=== PATIENT | female | born 1945 | race Caucasian/White ===

== ENCOUNTER 2017-03-21 16:11 | Observation (INO) | payer MEDICARE, OTHER ==
--- NOTE | 2017-03-21 16:43 | ERPHSYRPT ---
- History of Present Illness Time Seen by Provider: 03/21/17 16:35 Source: patient Exam Limitations: no limitations Patient Subjective Stated Complaint: pt here for right foot pain and not being able to bear wieght on foot. no injury to foot, was seen at [facility] yesterday for same thing and had xray and us. Triage Nursing Assessment: pt arrived per ambulance. pt alert, resp easy, skin w /d pink, pt has minimal swelling to lower right leg . slight reddness to lower leg, Physician History: 71-year-old white female with history of adrenal insufficiency, high blood pressure, osteoarthritis and chronic kidney disease. Arrives with complaint of pain in her dorsal right foot worse with movement and states she is unable to walk secondary pain in her right foot. Symptoms for 2-3 days. Patient was apparently seen at [facility] yesterday she states they didn' t x-ray and a Doppler. She states that she had gotten a pain pill she states she was discharged home she states she cannot walk. Past medical history includes adrenal insufficiency, high blood pressure, osteoarthritis, chronic kidney disease, shortness of breath. Past surgical history includes cholecystectomy, orthopedic surgery, right knee replacement. Method of Injury: unknown Occurred: days ago (2-3 days ago) Lower Extremities Pain: foot: right Modifying Factors: Improves With: movement, other (unable to bear weight right foot) Associated Symptoms: unable to bear weight Allergies/Adverse Reactions: guaifenesin [From Mucinex] Allergy (Mild, Verified 03/21/17 16:19) unsure levofloxacin [From Levaquin] Allergy (Mild, Verified 03/21/17 16:19) unsure nabumetone [From Relafen] Allergy (Mild, Verified 03/21/17 16:19) UNSURE Home Medications: Aspirin 81 gm Chew [Baby Aspirin 81 mg Chew] 81 mg PO DAILY 08/01/13 [ History] Cephalexin [Keflex] 500 mg PO QID 12/27/13 [History] Folic Acid/Vitamin B Comp W-C [Renal Softgel] 1 mg PO DAILY 12/27/13 [History] Furosemide 40 mg PO DAILY 12/27/13 [History] Losartan Potassium [Cozaar] 25 mg PO DAILY 12/27/13 [History] Metolazone 2.5 mg [Zaroxolyn 2.5 MG] 2.5 mg PO DAILY 12/27/13 [History] Metoprolol Succinate 50 mg [Toprol Xl 50 MG] 50 mg PO DAILY 12/27/13 [ History] Potassium Chloride 20 Meq [Klor-Con 20 MEQ] 20 meq PO BID 12/27/13 [History] Hx Tetanus, Diphtheria Vaccination/Date Given: Yes (UNKNOWN) Hx Influenza Vaccination/Date Given: No Hx Pneumococcal Vaccination/Date Given: No Immunizations Up to Date: Yes - Review of Systems Constitutional: No Fever, No Chills Eyes: No Symptoms Ears, Nose, & Throat: No Symptoms Respiratory: No Cough, No Dyspnea Cardiac: No Chest Pain, No Edema, No Syncope Abdominal/Gastrointestinal: No Abdominal Pain, No Nausea, No Vomiting, No Diarrhea Genitourinary Symptoms: No Dysuria Musculoskeletal: Arthralgias, Other (pain with walking right foot) Skin: No Rash Neurological: No Dizziness, No Focal Weakness, No Sensory Changes Psychological: No Symptoms Endocrine: No Symptoms All Other Systems: Reviewed and Negative - Past Medical History Pertinent Past Medical History: Yes Neurological History: No Pertinent History Cardiac History: Hypertension Respiratory History: Other Endocrine Medical History: Adrenal Insufficiency Musculoskeletal History: Osteoarthritis GI Medical History: No Pertinent History History: Other Psycho-Social History: No Pertinent History Female Reproductive Disorders: No Pertinent History Other Medical History: chronic kidney disease, SOB, - Past Surgical History Past Surgical History: Yes Gastrointestinal: Cholecystectomy Musculoskeletal: Orthopedic Surgery - Social History Smoking Status: Never smoker Exposure to second hand smoke: No Drug Use: none Patient Lives Alone: No - Female History Hx Last Menstrual Period: post Hx Now: No - Nursing Vital Signs Nursing Vital Signs: Initial Vital Signs Temperature 97.4 F 03/21/17 16:12 Pulse Rate 102 H 03/21/17 16:12 Respiratory Rate 18 03/21/17 16:12 Blood Pressure 129/60 03/21/17 16:12 O2 Sat by Pulse Oximetry 97 03/21/17 16:12 Pain Scale Pain Intensity 4 - Physical Exam General Appearance: alert Eyes, Ears, Nose, Throat Exam: moist mucous membranes Neck Exam: non-tender, supple Cardiovascular/Respiratory Exam: chest non-tender, normal breath sounds, regular rate/rhythm, no respiratory distress Gastrointestinal/Abdominal Exam: non-tender, guarding Back Exam: normal inspection, No vertebral tenderness Hips Exam: bilateral: non-tender, normal inspection, normal range of motion, no evidence of injury Legs Exam: left leg: non-tender, normal inspection, bilateral leg: normal range of motion, no evidence of injury Knees Exam: bilateral knee: non-tender, normal inspection, normal range of motion, no evidence of injury Ankle Exam: bilateral ankle: non-tender, normal inspection, normal range of motion Foot Exam: right foot: bone tenderness, left foot: non-tender, bilateral foot: normal inspection, no evidence of injury, deformity ( tender with palpation dorsally) DTR - Lower Extremities Exam: ankle (R): 2+, ankle (L): 2+ Neuro/Tendon Exam: normal sensation, normal motor functions Mental Status Exam: alert, oriented x 3, cooperative Skin Exam: normal color, warm, dry SpO2 Interpretation: normal (97%) SpO2: 97 Oxygen Delivery: Room Air - Course Nursing assessment & vital signs reviewed: Yes Ordered Tests: Active Orders 24 hr Category Date Time Status BMP Stat Lab 03/21/17 17:20 Completed CBC W DIFF Stat Lab 03/21/17 17:20 Completed Uric Acid Stat Lab 03/21/17 17:20 Completed Lab/Rad Data: Laboratory Result Diagrams 03/21/17 17:20 03/21/17 17:20 Laboratory Results 03/21/17 03/21/17 03/21/17 Range/Units 17:20 17:20 17:20 WBC 8.9 (4.0-10.5) K/mm3 RBC 4.37 (4.1-5.4) M/mm3 Hgb 11.7 L (12.0-16.0) gm/dl Hct 37.0 (35-47) % MCV 84.7 (78-100) fl MCH 26.7 (26-32) pg MCHC 31.6 L (32-36) g/dl RDW 15.1 H (11.5-14.0) % Plt Count 234 (150-450) K/mm3 MPV 10.4 H (6-9.5) fl Gran % 78.8 H (36.0-66.0) % Lymphocytes % 14.1 L (24.0-44.0) % Monocytes % 4.1 (0.0-12.0) % Eosinophils % 2.7 (0.00-5.0) % Basophils % 0.3 (0.0-0.4) % Basophils # 0.03 (0-0.4) Sodium 142 (136-145) mEq/L Potassium 3.5 (3.5-5.1) mEq/L Chloride 102 (98-107) mEq/L Carbon Dioxide 28.9 (21-32) mEq/L Anion Gap 14.9 (5-15) MEQ/L BUN 37 H (9-20) mg/dL Creatinine 1.81 H (0.55-1.30) mg/dl Estimated GFR 29 ML/MIN Glucose 150 H (70-110) MG/DL Uric Acid 12.0 H (2.6-6.0) mg/dL Calcium 9.1 (8.5-10.1) mg/dL - Progress Progress: improved Progress Note: 03/21/17 17:55 71-year-old white female with history of right knee replacement arrives with complaint of pain in her right foot and unable to walk for several days. Patient was seen at [facility] yesterday at which time she had a normal CBC sedimentation rate, venous Doppler of her right lower extremity an x-ray of her right foot. Patient was apparently given a shot of Toradol Will release given a prescription for tramadol. Patient states she is unable to walk and is brought to this emergency room today. On physical examination patient appears to be stable she has pain with palpation dorsal right foot and pain with trying to walk family states that the patient is unable to his airway on her feet they state she is unable to get around at home. Patient has a repeat CBC which is essentially normal chemistry essentially normal. However patient does have an elevated sedimentation rate of 12. Will discuss case with Dr. Nicole or whoever is on-call for her. 03/21/17 18:16 case has been discussed with Dr. Rodriguez place patient on observation provide morphine for pain. Will ask for pharmacy to calculate dosage and frequency of Colchicine. - Departure Time of Disposition: 18:17 Departure Disposition: Observation Clinical Impression: Right foot pain, Inability to ambulate due to ankle or foot Gout Qualifiers: Gout site: foot Gout etiology: unspecified cause Chronicity: acute Laterality: right Qualified Code(s): M10.9 - Gout, unspecified Condition: Fair Critical Care Time: No Referrals: JATIN NICOLE [Primary Care Provider] -
[2017-03-21 17:14] LABS: BASOPHIL % 0.3 % (0.0-0.4); Eosinophil % 2.7 % (0.00-5.0); Granulocytes % 78.8 % (36.0-66.0); Lymphocytes % 14.1 % (24.0-44.0); Mean Cell Volume 84.7 fl (78-100); Mean Platelet Volume 10.4 fl (6-9.5); Monocytes % 4.1 % (0.0-12.0); Platelet Count 234 K/mm3 (150-450); Red Blood Count 4.37 M/mm3 (4.1-5.4); Red Cell Distribution Width 15.1 % (11.5-14.0); White Blood Count 8.9 K/mm3 (4.0-10.5)
[2017-03-21 17:42] LABS: ANION GAP 14.9 MEQ/L (5-15); Carbon Dioxide 28.9 mEq/L (21-32); Potassium 3.5 mEq/L (3.5-5.1)
[2017-03-21 17:43] LABS: Mean Corpuscular Hemoglobin 26.7 pg (26-32)
[2017-03-21] MEDS ORDERED: Zofran 4 MG/2 ML VIAL IV PRN (19:19)
[2017-03-21] MEDS: MORPHINE SULFATE 4 MG INJ IV PRN (20:26)
[2017-03-21] MEDS: DELTASONE 20 MG PO SCH (22:14)
[2017-03-21] MEDS: Indocin 25 MG PO SCH (22:15)
[2017-03-22] MEDS: MORPHINE SULFATE 4 MG INJ IV PRN (05:01)
--- NOTE | 2017-03-22 08:46 | XRAY ---
Indication: Pain, erythema, and swelling. Unable to weight-bear. No known injury. Multiple contiguous axial images obtained through the right ankle/foot without contrast. Two-dimensional sagittal and coronal reformatted images obtained. Comparison: None There is mild cutaneous soft tissue swelling, greatest anterolaterally. No suspicious solid/cystic mass or abnormal fluid collection. Moderate/advanced scattered vascular calcifications. Ankle/foot mortise appears anatomic. Note tarsal coalition. The mid to hind foot demonstrates moderate degenerative changes as evidence by joint space narrowing, sclerosis/spurring, and subcortical cysts. Lesser degenerative changes seen of the talar navicular articulation. Tiny medial malleolar tip spurring. Mild/moderate posterior and plantar heel spurs. No acute fracture or suspicious bony lesions. Impression: Diffuse ankle/foot degenerative changes and scattered arteriosclerotic disease. Nothing acute. CT DI 31.59
[2017-03-22] MEDS ORDERED: FLUZONE HIGH-DOSE 2017-18 SYR IM ONE (09:00)
[2017-03-22] MEDS: DELTASONE 20 MG PO SCH (09:19)
[2017-03-22] MEDS: Indocin 25 MG PO SCH ×3 (09:19→21:50)
--- NOTE | 2017-03-22 15:04 | XRAY ---
Indication: residential placement. Comparison: None Portable chest clear. Heart and mediastinal structures within normal limits for AP portable technique. Bony thorax intact with mild degenerative changes. Impression: Nonacute chest.
--- NOTE | 2017-03-22 15:06 | XRAY ---
Indication: Pain. Comparison: CT earlier in the day. 3 views of the right ankle obtained using portable technique demonstrates stable ankle/hindfoot degenerative changes, soft tissue swelling, and scattered vascular calcifications. No new/acute findings.
[2017-03-22] MEDS: Klor Con 10 MEQ PO SCH ×2 (15:59→21:50)
[2017-03-22] MEDS: NON-FORMULARY ITEM (Sodium Bicarbonate [Sodium Bicarbonate] 0 MG) PO SCH (15:59)
[2017-03-22] MEDS: Vitamin B-12 500 MCG PO SCH (16:00)
[2017-03-22] MEDS: VITA-BEE WITH C PO SCH (16:00)
[2017-03-22] MEDS: BUMEX 1 MG PO SCH (16:00)
[2017-03-22] MEDS ORDERED: NON-FORMULARY ITEM (Potassium Chloride 20 Meq [Klor-Con 20 Meq] 20 MEQ) PO SCH (17:00)
--- NOTE | 2017-03-23 07:56 | HP ---
HISTORY OF PRESENT ILLNESS: Jayna Zaman is a 71 year old with past medical history of hypertension, congestive heart failure, chronic obstructive pulmonary disease, osteoarthritis, chronic renal insufficiency, chronic anemia and obesity. She was seen for symptoms of right knee, right foot pain and swelling. She was seen at [facility] Room on 03/20/2017 with symptoms of right knee, right foot pain and swelling. She underwent work up and was discharged home. Eventually she presented to the [facility] Emergency Room yesterday with persistent right foot pain and not being able to bear weight on the foot. There was no reported history of trauma or unusual activity prior to worsening of symptoms. The symptoms are not associated with fever or redness. The patient stated her usual pain medication, Tylenol, did not help her at all. The symptoms had started about two to three days prior to her presentation. Upon initial evaluation in the emergency room she was noted to have blood pressure 129/60, heart rate 102, respiratory rate 18 and temperature 97.4F. Work up was notable for BUN 37, creatinine 1.81, uric acid 12. She was placed on treatment with analgesics. Subsequently she was admitted to the medical floor for further monitoring and management. Since admission she was continued on analgesics. Since admission she was continued on analgesics. She underwent additional work up. At the time of evaluation this afternoon the patient was alert, awake, comfortable, stated her right foot pain was somewhat better. She did have some mild right ankle pain. She stated knee pain was back to her usual. She stated that she was able to ambulate to bathroom with help. She denied any other new complaints. PAST MEDICAL HISTORY: As noted above. Renal insufficiency. PAST SURGICAL HISTORY: Cholecystectomy, right knee surgery (replacement). ALLERGIES: GUAIFENESIN, LEVOFLOXACIN, NABUMETONE. MEDICATIONS: Reviewed. FAMILY HISTORY: Noncontributory. SOCIAL HISTORY: The patient lives at home. No history of smoking. REVIEW OF SYSTEMS: Denies headache or dizziness. Denies chest pain, increased shortness of breath or cough. Denies history of fever. Denies abdominal pain, nausea or vomiting. Denies constipation or diarrhea. Complains of right knee pain (chronic). Complains of right ankle/right foot pain. Complains of difficulty bearing weight on right foot due to pain (now improved). PHYSICAL EXAMINATION: An elderly, obese woman lying comfortably in bed, not in acute distress. VITAL SIGNS: Blood pressure 155/70, heart rate 64, respiratory rate 20, temperature 97.8F. Oxygen saturation 96 to 97% on room air. HEENT: Pallor is present. NECK: No JVD is present. CVS: S1, S2 present. RESPIRATORY: Breath sounds are bilaterally diminished and clear to auscultation. ABDOMEN: Obese, soft, nontender. NEURO: She is alert, oriented x3. EXTREMITIES: Revealed trace edema on ankles. Examination of right ankle revealed mild tenderness to touch, no erythema, no local increased temperature, range of motion was mildly painful. Examination of right foot revealed minimal swelling, no swelling, no erythema, no local increased temperature. Tenderness is present on dorsal aspect of right foot. Full range of motion of all toes was present. Pedal pulses were present. No discoloration of toes was noted (as per patient all findings had improved from yesterday). Bilateral calves were nontender. Aldo's sign was negative bilaterally. LABORATORY DATA AND TESTS: Labs from yesterday were notable for CBC with white blood cell of 8.9, hemoglobin 11.7, hematocrit 37. CMP was notable for BUN 37, creatinine 1.81, uric acid was 12, glucose 150. The patient underwent right foot x-ray at [facility] on 01/21/2017 and those had revealed no acute changes. Right lower extremity CT from this morning showed diffuse ankle/foot degenerative changes, scattered arteriosclerotic disease, nothing acute. Right ankle x-ray showed no new or acute findings. Chest x-ray from this afternoon had shown nonacute chest. ASSESSMENT: A 71 year old woman with impression: 1) Intractable right foot pain (now improved). 2) Gout. 3) History of hypertension/congestive heart failure. 4) History of chronic obstructive pulmonary disease. 5) Chronic renal insufficiency. 6) Chronic anemia. 7) Chronic obstructive pulmonary disease. 8) Obesity. 9) Difficulty ambulating. PLAN: The patient is admitted for further monitoring and management. The patient has undergone work up and management as noted. Specific medications suggest colchicine, Colcrys or Uloric are not available as per pharmacy. A substitution with indomethacin/daily prednisone was recommended by pharmacy which was started. The patient appears to have symptomatically improved. Orthopedic consultation has been requested. The patient will continue to undergo PT. The patient/family had requested likely penitentiary placement due to difficulty ambulating and overall not being able to take care of herself at home. This was discussed with case management and is being arranged by them. I discussed with the patient and she seems to be in understanding and agreement.
[2017-03-23] MEDS ORDERED: VITAMIN B COMP W C PO SCH (10:00)
[2017-03-23] MEDS ORDERED: Aldactone 25 MG PO SCH (10:00)
[2017-03-23] MEDS ORDERED: FOLIC ACID PO SCH (10:00)
[2017-03-23] MEDS ORDERED: Kenalog-40 IM SCH (10:38)
[2017-03-23] MEDS: Klor Con 10 MEQ PO SCH ×4 (11:03→21:22)
[2017-03-23] MEDS: BUMEX 1 MG PO SCH ×2 (11:03→17:42)
[2017-03-23] MEDS: VITA-BEE WITH C PO SCH (11:03)
[2017-03-23] MEDS: DELTASONE 20 MG PO SCH (11:03)
[2017-03-23] MEDS: Indocin 25 MG PO SCH ×3 (11:04→21:22)
[2017-03-23] MEDS: Vitamin B-12 500 MCG PO SCH (11:04)
[2017-03-23] MEDS: NON-FORMULARY ITEM (Sodium Bicarbonate [Sodium Bicarbonate] 0 MG) PO SCH (11:05)
--- NOTE | 2017-03-23 11:19 | XRAY ---
Indication: Pain. No known injury. Comparison: December 06, 2012. Portable AP/lateral right knee demonstrate interval total knee arthroplasty with intact articulation and prosthesis. Tiny calcified granulomas anterior to the distal femur. Stable osteopenia and scattered vascular calcifications. No other bony, articular, or soft tissue abnormalities.
--- NOTE | 2017-03-23 11:22 | XRAY ---
Indication: Pain. No known injury. Comparison: August 06, 2011. Portable AP/lateral left knee demonstrates moderate/advanced tricompartmental degenerative changes with interval worsening medial compartment. Stable mild osteopenia and minimal vascular calcifications. No new/acute bony, articular, or soft tissue abnormalities.
[2017-03-23] MEDS ORDERED: Xylocaine 1% Vial 30 ML PF IJ SCH (11:30)
--- NOTE | 2017-03-23 15:19 | DS ---
DISCHARGE DIAGNOSES: 1) INTRACTABLE RIGHT FOOT PAIN, RESOLVING. 2) GOUT. 3) RIGHT ANKLE PAIN, IMPROVED. 4) RIGHT KNEE PAIN, IMPROVED. 5) HISTORY OF HYPERTENSION/CONGESTIVE HEART FAILURE. 6) HISTORY OF CHRONIC OBSTRUCTIVE PULMONARY DISEASE. 7) HYPERLIPIDEMIA. 8) ANXIETY. 9) OBESITY. 10) CHRONIC BACK PAIN. 11) CHRONIC RENAL INSUFFICIENCY. HOSPITAL COURSE: Jayna Zaman is a 71 year-old woman with multiple medical problems. She was initially seen at [facility] on 03/20/2017 with right knee, right ankle, right foot pain and after undergoing work up there was discharged home. Eventually she presented to the [facility] Emergency Room on 03/21/2017 with intractable right foot pain, unable to bear weight on right lower extremity and difficulty ambulating. Work up in the emergency room was notable for elevated uric acid of 12. The patient was placed on prednisone, indomethacin as no other anti-hyperuricemic agents were available at the time. Also she was placed on PRN analgesics. During her further course she underwent right ankle x-ray which had revealed no acute changes of the right ankle/right foot. CT had revealed no acute changes. Orthopedic consultation had been requested and is still pending. The patient's pain gradually improved. She was evaluated by PT and was able to ambulate a short distance with assistance. However she continued to remain deconditioned and as per patient and family she is unable to take care of herself at home. The patient and family requested that the patient be placed at the prior facility where she was at a few months ago. This was discussed with case management and after orthopedic evaluation is completed, if cleared by orthopedics the patient will likely be discharged there today. PHYSICAL EXAMINATION: At the time of this evaluation the patient is alert, awake, comfortable, still having some right knee pain (chronic) with prior history of surgery. Right ankle/right foot pain has improved. Otherwise denies any new complaints. VITAL SIGNS: Blood pressure 141/63, heart rate 62, respiratory rate 18, temperature 97.2F. Oxygen saturation 95%. HEENT: No pallor or icterus is noted. NECK: No JVD is present. CVS: S1, S2 present. RESPIRATORY: Breath sounds are bilaterally diminished and clear to auscultation. ABDOMEN: Obese, soft, nontender. NEURO: She is alert, awake, answers simple questions appropriately, follows simple commands appropriately. EXTREMITIES: No edema on bilateral lower extremities. Mild tenderness is present on right knee. Range of motion of right knee painful with well healed scar of prior surgery is noted on anterior aspect of right knee. Right ankle and right foot show minimal tenderness however no erythema, no swelling. Range of movement of right ankle is minimally painful. Full range of motion of right toes is present. No discoloration of toes is noted. LABORATORY DATA AND TESTS: There were no new labs. Medications were reviewed. ASSESSMENT: As outlined in discharge diagnoses and hospital course. PLAN: The patient will be admitted to [facility] under my care. At the time of discharge she is being placed on Medrol Dosepak and a low dose of indomethacin. She has clinically improved and in review of renal function, we will continue to monitor her renal function upon discharge. Also if symptoms recur or worsen, will add specific anti-hyperuricemic agent. The patient will continue to follow with orthopedics as outpatient. Please refer to the patient's chart, labs, diagnostic work up results and consult notes for details. Please refer to discharge medication list from 03/23/2017 for details of medications on discharge. The patient's clinical condition, work-up results and plan of management and plan after discharge was discussed with the patient. She seems to be in understanding and agreement. Discussed with patient's nurse, Jose.
[2017-03-23] MEDS: MORPHINE SULFATE 4 MG INJ IV PRN (19:51)
--- NOTE | 2017-03-24 07:38 | CONS ---
CONSULT DATE: 03/23/2017 REASON FOR CONSULT: Right ankle discomfort, pain and swelling. HISTORY: The patient is a 71 year-old white female with right knee pain, right foot and ankle discomfort. X-rays and CT's have been reviewed and are consistent with generalized degenerative changes. AP film shows a slight transitory subluxation of the tibia on the talus and this is more degenerative in changes with some marginal osteophytes and spurring. PHYSICAL EXAMINATION: Neurovascular status on the exam today is unremarkable. The patient has generalized amorphous swelling with some puffiness around the fibula. Pulses at dorsalis pedis are weakly palpable but are present. The rest of the tendinous inscription over the ankle is intact. The ankle is not grossly unstable to inversion, tender over the anterior talofibular ligament area. Well healed scar on the right knee is seen. Left knee not examined. X-rays on the right ankle show mild subluxation and lateral translation of the talus under the tibia, degenerative joint disease. X-rays of the knee on the right look fine, medial joint line on the left grossly collapsed. IMPRESSION: 1) RIGHT ANKLE DEGENERATIVE CHANGES, UNLIKELY TO BE GOUT. 2) STABLE RIGHT KNEE TOTAL KNEE ARTHROPLASTY. 3) LEFT KNEE DEGENERATIVE JOINT DISEASE END STAGE JOINT LINE COLLAPSE. PLAN: Follow up in four weeks. Injection and attempted aspiration today under aseptic conditions of the right ankle done under aseptic conditions. The aspiration was unsuccessful even with an 18 gauge needle, very little fluid in the joint line to aspirate but injection of 2 cc of lidocaine 1% without epinephrine and 2 cc of Kenalog was performed and the patient tolerated it well.
[2017-03-24 07:43] VITALS: BP 141/66; PULSE 72; O2SAT 72
--- NOTE | 2017-03-24 07:44 | OP ---
DATE: 03/23/2017 PREOPERATIVE DIAGNOSES: 1) Degenerative joint disease right ankle. 2) Possible gouty attack right ankle need for aspiration. POSTOPERATIVE DIAGNOSIS: 1) Degenerative joint disease right ankle. 2) Possible gouty attack right ankle need for aspiration. PROCEDURE: Right ankle aspiration and injection. PROCEDURE PERFORMY BY: Dr. Nir Blanco. DESCRIPTION OF PROCEDURE: Under aseptic conditions and after appropriate consent using local anesthesia with Betadine prep, an 18 gauge needle was used to aspirate the fluid in the ankle and none obtained. None was sent down for cell count or uric acid levels or cultures. Injection of 1 cc of Kenalog and 1 to 2 cc of lidocaine performed without incident. Simple bandage covering of the wound. The patient remained in her room for follow up care. She will be able to be dismissed to [place] and will be full weight bearing.
[2017-03-24] MEDS: Klor Con 10 MEQ PO SCH (08:54)
[2017-03-24] MEDS: Indocin 25 MG PO SCH (08:55)
[2017-03-24] MEDS: VITA-BEE WITH C PO SCH (08:55)
[2017-03-24] MEDS: Vitamin B-12 500 MCG PO SCH (08:55)
[2017-03-24] MEDS: BUMEX 1 MG PO SCH (08:55)
[2017-03-24] MEDS: NON-FORMULARY ITEM (Sodium Bicarbonate [Sodium Bicarbonate] 0 MG) PO SCH (08:55)
[2017-03-24] MEDS ORDERED: VITAMIN D2 PO SCH (10:00)
== END 2017-03-24 09:30 ==
LOC: ED 16:11 → MED SURG 18:55
PROVIDERS: ADMIT General Practice; ATTEND General Practice
PROC: 3E0U3BZ Introduction of Anesthetic Agent into Joints, Percutaneous Approach (ICD-10-PCS; principal; 2017-03-23)
PROC: 3E0U33Z Introduction of Anti-inflammatory into Joints, Percutaneous Approach (ICD-10-PCS; 2017-03-23)
DX: M19.071 Primary osteoarthritis, right ankle and foot (principal); M79.671 Pain in right foot; M10.9 Gout, unspecified; M17.12 Unilateral primary osteoarthritis, left knee; M25.571 Pain in right ankle and joints of right foot; I50.9 Heart failure, unspecified; N18.9 Chronic kidney disease, unspecified; I13.0 Hypertensive heart and chronic kidney disease with heart failure and stage 1 through stage 4 chronic kidney disease, or unspecified chronic kidney disease; J44.9 Chronic obstructive pulmonary disease, unspecified; E78.5 Hyperlipidemia, unspecified; F41.9 Anxiety disorder, unspecified; E66.9 Obesity, unspecified; M54.9 Dorsalgia, unspecified; G89.29 Other chronic pain; F45.42 Pain disorder with related psychological factors; D64.9 Anemia, unspecified; R26.2 Difficulty in walking, not elsewhere classified; Z23 Encounter for immunization; Z96.652 Presence of left artificial knee joint
CPT/HCPCS: 36415; 71010; 73560; 73610; 73700; 80048; 84134; 84550; 85025; 93268; 99285; G0008; G0378; J2001; J2270; J3301; 90662; A9270-GY; J7506

== ENCOUNTER 2018-08-25 11:21 | Inpatient (IN) | payer MEDICARE ==
[2018-08-25] MEDS ORDERED: PROTONIX 40 MG IV IV ONE ×2 (11:35→12:26)
[2018-08-25] MEDS ORDERED: Zofran 4 MG/2 ML VIAL IV ONE (11:35)
[2018-08-25] MEDS ORDERED: Sodium Chloride 0.9% 1000 ML 1,000 ML IV STA ×2 (11:35→15:10)
--- NOTE | 2018-08-25 11:42 | ERPHSYRPT ---
- History of Present Illness Time Seen by Provider: 08/25/18 11:39 Historian: patient, EMS Patient Subjective Stated Complaint: Pt states "I have been vomiting and not had a bowel movement in over a week." Triage Nursing Assessment: Pt presented via scat through ambulance bay and placed in room 5. Pt moaning, denies any pain, obese non tender abdomen, skin pwd. PT able to speak in clear full sentences. Physician History: [place] pt w/ [place] today since 10am, no recent BM, +fever, pt nonambulatory, refused pain med, no abdominal pain Allergies/Adverse Reactions: guaifenesin [From Mucinex] Allergy (Mild, Verified 03/21/17 16:19) unsure levofloxacin [From Levaquin] Allergy (Mild, Verified 03/21/17 16:19) unsure nabumetone [From Relafen] Allergy (Mild, Verified 03/21/17 16:19) UNSURE Home Medications: Aspirin 81 mg PO DAILY 03/22/17 [History] Bumetanide 1 mg PO BID 03/22/17 [History] Cyanocobalamin 500 Mcg [Vitamin B-12 500 MCG] 2 tab PO DAILY 03/22/17 [ History] Ergocalciferol (Vitamin D2) [Vitamin D2] 50,000 unit PO Q7D 03/22/17 [History] Folic Acid/Vitamin B Comp W-C [Renal Softgel] 1 mg PO DAILY 03/22/17 [History] Potassium Chloride 20 Meq [Klor-Con 20 MEQ] 20 meq PO QID 03/22/17 [History] Sodium Bicarbonate 650 mg PO DAILY 03/22/17 [History] Spironolactone 25 mg [Aldactone 25 MG] 25 mg PO UD 03/22/17 [History] Insulin Aspart [NovoLOG Insulin] 1 unit SQ DAILY 08/25/18 [History] Insulin Detemir [Levemir] 100 unit SQ DAILY 08/25/18 [History] Hx Tetanus, Diphtheria Vaccination/Date Given: No Hx Influenza Vaccination/Date Given: Yes Hx Pneumococcal Vaccination/Date Given: Yes Immunizations Up to Date: Yes - Review of Systems Constitutional: Fever, Fatigue Eyes: No Eye Redness Ears, Nose, & Throat: No Mouth Pain Respiratory: No Cough, No Dyspnea Cardiac: No Chest Pain Abdominal/Gastrointestinal: Nausea, Vomiting, No Abdominal Pain Musculoskeletal: No Neck Pain Skin: No Rash Neurological: No Dizziness - Past Medical History Pertinent Past Medical History: Yes Neurological History: No Pertinent History Cardiac History: Hypertension Respiratory History: Other Endocrine Medical History: Adrenal Insufficiency Musculoskeletal History: Osteoarthritis GI Medical History: No Pertinent History History: Other Psycho-Social History: No Pertinent History Female Reproductive Disorders: No Pertinent History Other Medical History: chronic kidney disease, SOB, - Past Surgical History Past Surgical History: Yes Gastrointestinal: Cholecystectomy Musculoskeletal: Orthopedic Surgery Other Surgical History: R knee replacement - Social History Smoking Status: Former smoker Exposure to second hand smoke: Yes Drug Use: none Patient Lives Alone: No - Female History Hx Now: No - Nursing Vital Signs Nursing Vital Signs: Initial Vital Signs Temperature 101.4 F 08/25/18 11:26 Pulse Rate 134 H 08/25/18 11:26 Respiratory Rate 22 08/25/18 11:26 Blood Pressure 117/93 08/25/18 11:26 O2 Sat by Pulse Oximetry 94 L 08/25/18 11:26 Pain Scale Pain Intensity 4 - Physical Exam General Appearance: no apparent distress Eye Exam: eyes nml inspection Ears, Nose, Throat Exam: moist mucous membranes, other ([place]) Neck Exam: normal inspection Respiratory Exam: normal breath sounds Cardiovascular Exam: tachycardia Gastrointestinal/Abdomen Exam: soft, No tenderness Extremity Exam: pelvis stable Neurologic Exam: alert, oriented x 3, cooperative Skin Exam: normal color, warm, dry SpO2 Interpretation: normal SpO2: 94 - Course Nursing assessment & vital signs reviewed: Yes EKG Interpreted by Me: Sinus Tach, Other (no stemi) - Radiology Exams Chest X-ray Interpretation: Reviewed by me, Negative - CT Exams Abdomen/Pelvis CT Interpretation: Negative, Discussed w/radiologist Ordered Tests: Active Orders 24 hr Category Date Time Status EKG-ER Only STAT Care 08/25/18 11:35 Active IV Insertion STAT Care 08/25/18 11:35 Active ABDOMEN AND PELVIS W/0 CONTRAS [CT] Stat Exams 08/25/18 11:36 Completed CHEST 1 VIEW (PORTABLE) Stat Exams 08/25/18 11:38 Completed BLOOD CULTURE Stat Lab 08/25/18 12:30 Received CBC W DIFF Stat Lab 08/25/18 12:20 Completed CMP Stat Lab 08/25/18 12:20 Completed CULTURE,URINE Stat Lab 08/25/18 12:53 Received LIPASE Stat Lab 08/25/18 12:20 Completed Lactic Acid Stat Lab 08/25/18 12:21 Completed Lactic Acid Stat Lab 08/25/18 14:40 Results Manual Differential NC Stat Lab 08/25/18 12:20 Completed Occult Blood-Screening (Stool) [Occult Blood - Cancer Lab 08/25/18 12:46 Completed Screen] Stat PROTIME WITH INR Stat Lab 08/25/18 12:20 Completed TROPONIN Q3H Lab 08/25/18 12:20 Completed TROPONIN Q3H Lab 08/25/18 14:45 Received TROPONIN Q3H Lab 08/25/18 17:45 Ordered TROPONIN Q3H Lab 08/25/18 20:45 Ordered TROPONIN Q3H Lab 08/25/18 23:45 Ordered UA W/RFX UR CULTURE Stat Lab 08/25/18 12:48 Completed Medication Summary Discontinued Medications Generic Name Dose Route Start Last Admin Trade Name Freq PRN Reason Stop Dose Admin Acetaminophen 1,000 mg 08/25/18 12:24 08/25/18 12:29 Tylenol Extra Strength 500 Mg PO 08/25/18 12:25 1,000 mg STAT STA Administration Acetaminophen Confirm 08/25/18 12:26 Tylenol Extra Strength 500 Mg Administered 08/25/18 12:27 Dose 1,000 mg .ROUTE .STK-MED ONE Sodium Chloride 1,000 mls @ 999 mls/hr 08/25/18 11:35 08/25/18 12:29 Sodium Chloride 0.9% 1000 Ml IV 08/25/18 12:35 999 mls/hr .Q1H1M STA Administration Sodium Chloride Confirm 08/25/18 12:26 Sodium Chloride 0.9% 1000 Ml Administered 08/25/18 12:27 Dose 1,000 mls @ ud .ROUTE .STK-MED ONE Piperacillin Sod/Tazobactam Sod 3.375 gm in 100 mls @ 200 mls/hr 08/25/18 13: 40 08/25/18 13:59 Zosyn 3.375gm/100 Ml D5w IV 08/25/18 14:09 200 mls/hr STAT STA 200 mls/hr Administration Piperacillin Sod/Tazobactam Sod Confirm 08/25/18 13:58 Zosyn 3.375gm/100 Ml D5w Administered 08/25/18 13:59 Dose 3.375 gm in 100 mls @ ud IV .STK-MED ONE Ondansetron HCl 4 mg 08/25/18 11:35 08/25/18 11:48 Zofran 4 Mg/2 Ml Vial IV 08/25/18 11:36 4 mg STAT ONE Administration Ondansetron HCl Confirm 08/25/18 11:48 Zofran 4 Mg/2 Ml Vial Administered 08/25/18 11:49 Dose 4 mg .ROUTE .STK-MED ONE Pantoprazole Sodium 40 mg 08/25/18 11:35 08/25/18 12:29 Protonix 40 Mg Iv IV 08/25/18 11:36 40 mg STAT ONE Administration Pantoprazole Sodium Confirm 08/25/18 12:26 Protonix 40 Mg Iv Administered 08/25/18 12:27 Dose 40 mg IV .STK-MED ONE Lab/Rad Data: Laboratory Result Diagrams 08/25/18 12:20 08/25/18 12:20 Laboratory Results 08/25/18 08/25/18 08/25/18 Range/Units 14:40 12:48 12:46 WBC (4.0-10.5) K/mm3 RBC (4.1-5.4) M/mm3 Hgb (12.0-16.0) gm/dl Hct (35-47) % MCV (78-100) fl MCH (26-32) pg MCHC (32-36) g/dl RDW (11.5-14.0) % Plt Count (150-450) K/mm3 MPV (6-9.5) fl Segmented Neutrophils (36.0-66.0) % Band Neutrophils (0.0-2.0) % Lymphocytes (Manual) (24-44) % Monocytes (Manual) (0.0-12.0) % Toxic Granulation Platelet Estimate (NORMAL) RBC Morphology PT (9.95-12.35) SECONDS INR (0.8-3.0) Sodium (137-145) mmol/L Potassium (3.5-5.1) mmol/L Chloride (98-107) mmol/L Carbon Dioxide (22-30) mmol/L Anion Gap (5-15) MEQ/L BUN (7-17) mg/dL Creatinine (0.52-1.04) mg/dL Estimated GFR ML/MIN Glucose (74-106) mg/dL Lactic Acid 4.1 H (0.4-2.0) Calcium (8.4-10.2) mg/dL Total Bilirubin (0.2-1.3) mg/dL AST (14-36) U/L ALT (0-35) U/L Alkaline Phosphatase (38-126) U/L Troponin I (0.000-0.034) ng/mL Serum Total Protein (6.3-8.2) g/dL Albumin (3.5-5.0) g/dL Lipase (23-300) U/L Urine Color YELLOW (YELLOW) Urine Appearance TURBID (CLEAR) Urine pH 5.0 (5-6) Ur Specific [place] 1.018 (1.005-1.025) Urine Protein 100 (Negative) Urine Ketones TRACE (NEGATIVE) Urine Blood SMALL (0-5) Ike/ul Urine Nitrite NEGATIVE (NEGATIVE) Urine Bilirubin NEGATIVE (NEGATIVE) Urine Urobilinogen 2 (0-1) mg/dL Ur Leukocyte Esterase MODERATE (NEGATIVE) Urine WBC (Auto) >100 (0-5) /HPF Urine RBC (Auto) 51-100 (0-2) /HPF U Epithel Cells (Auto) MODERATE (FEW) /HPF Urine Bacteria (Auto) MANY (NEGATIVE) /HPF Urine Mucus (Auto) SLIGHT (NEGATIVE) /HPF Urine Culture Reflexed ORDERED SEPARATELY (NO) Urine Glucose NEGATIVE (NEGATIVE) mg/dL Stool Occult Bld Scrn NEGATIVE (NEGATIVE) 08/25/18 08/25/18 08/25/18 Range/Units 12:21 12:20 12:20 WBC (4.0-10.5) K/mm3 RBC (4.1-5.4) M/mm3 Hgb (12.0-16.0) gm/dl Hct (35-47) % MCV (78-100) fl MCH (26-32) pg MCHC (32-36) g/dl RDW (11.5-14.0) % Plt Count (150-450) K/mm3 MPV (6-9.5) fl Segmented Neutrophils (36.0-66.0) % Band Neutrophils (0.0-2.0) % Lymphocytes (Manual) (24-44) % Monocytes (Manual) (0.0-12.0) % Toxic Granulation Platelet Estimate (NORMAL) RBC Morphology PT 13.2 H (9.95-12.35) SECONDS INR 1.13 (0.8-3.0) Sodium (137-145) mmol/L Potassium (3.5-5.1) mmol/L Chloride (98-107) mmol/L Carbon Dioxide (22-30) mmol/L Anion Gap (5-15) MEQ/L BUN (7-17) mg/dL Creatinine (0.52-1.04) mg/dL Estimated GFR ML/MIN Glucose (74-106) mg/dL Lactic Acid 5.8 H (0.4-2.0) Calcium (8.4-10.2) mg/dL Total Bilirubin (0.2-1.3) mg/dL AST (14-36) U/L ALT (0-35) U/L Alkaline Phosphatase (38-126) U/L Troponin I 0.013 (0.000-0.034) ng/mL Serum Total Protein (6.3-8.2) g/dL Albumin (3.5-5.0) g/dL Lipase (23-300) U/L Urine Color (YELLOW) Urine Appearance (CLEAR) Urine pH (5-6) Ur Specific [place] (1.005-1.025) Urine Protein (Negative) Urine Ketones (NEGATIVE) Urine Blood (0-5) Ike/ul Urine Nitrite (NEGATIVE) Urine Bilirubin (NEGATIVE) Urine Urobilinogen (0-1) mg/dL Ur Leukocyte Esterase (NEGATIVE) Urine WBC (Auto) (0-5) /HPF Urine RBC (Auto) (0-2) /HPF U Epithel Cells (Auto) (FEW) /HPF Urine Bacteria (Auto) (NEGATIVE) /HPF Urine Mucus (Auto) (NEGATIVE) /HPF Urine Culture Reflexed (NO) Urine Glucose (NEGATIVE) mg/dL Stool Occult Bld Scrn (NEGATIVE) 08/25/18 08/25/18 Range/Units 12:20 12:20 WBC 21.6 H (4.0-10.5) K/mm3 RBC 3.94 L (4.1-5.4) M/mm3 Hgb 12.2 (12.0-16.0) gm/dl Hct 37.8 (35-47) % MCV 95.9 (78-100) fl MCH 30.9 (26-32) pg MCHC 32.3 (32-36) g/dl RDW 16.3 H (11.5-14.0) % Plt Count 225 (150-450) K/mm3 MPV 10.5 H (6-9.5) fl Segmented Neutrophils 91 H (36.0-66.0) % Band Neutrophils 7 H (0.0-2.0) % Lymphocytes (Manual) 1 L (24-44) % Monocytes (Manual) 1 (0.0-12.0) % Toxic Granulation 1+ Platelet Estimate NORMAL (NORMAL) RBC Morphology NORMAL PT (9.95-12.35) SECONDS INR (0.8-3.0) Sodium 136 L (137-145) mmol/L Potassium 5.5 H (3.5-5.1) mmol/L Chloride 97 L (98-107) mmol/L Carbon Dioxide 19 L (22-30) mmol/L Anion Gap 25.5 H (5-15) MEQ/L BUN 94 H (7-17) mg/dL Creatinine 3.79 H (0.52-1.04) mg/dL Estimated GFR 12.4 ML/MIN Glucose 232 H (74-106) mg/dL Lactic Acid (0.4-2.0) Calcium 9.7 (8.4-10.2) mg/dL Total Bilirubin 2.90 H (0.2-1.3) mg/dL AST 246 H (14-36) U/L ALT 179 H (0-35) U/L Alkaline Phosphatase 141 H (38-126) U/L Troponin I (0.000-0.034) ng/mL Serum Total Protein 6.8 (6.3-8.2) g/dL Albumin 3.8 (3.5-5.0) g/dL Lipase 114 (23-300) U/L Urine Color (YELLOW) Urine Appearance (CLEAR) Urine pH (5-6) Ur Specific Lima (1.005-1.025) Urine Protein (Negative) Urine Ketones (NEGATIVE) Urine Blood (0-5) Ike/ul Urine Nitrite (NEGATIVE) Urine Bilirubin (NEGATIVE) Urine Urobilinogen (0-1) mg/dL Ur Leukocyte Esterase (NEGATIVE) Urine WBC (Auto) (0-5) /HPF Urine RBC (Auto) (0-2) /HPF U Epithel Cells (Auto) (FEW) /HPF Urine Bacteria (Auto) (NEGATIVE) /HPF Urine Mucus (Auto) (NEGATIVE) /HPF Urine Culture Reflexed (NO) Urine Glucose (NEGATIVE) mg/dL Stool Occult Bld Scrn (NEGATIVE) - Progress Progress: improved Progress Note: 08/25/18 15:07 urosepsis admit d/w Dr Sweeney 08/25/18 15:09 pt re evaluated, cap refill 2 sec, mentation normal Discussed with : Patel Will see patient in: hospital (full admit) Counseled pt/family regarding: lab results, diagnosis, rad results - Departure Departure Disposition: In-patient Admission Clinical Impression: Sepsis Qualifiers: Sepsis type: sepsis due to unspecified organism Qualified Code(s): A41.9 - Sepsis, unspecified organism Condition: Stable Critical Care Time: No Referrals: MARILUZ STEVENS [Primary Care Provider] -
[2018-08-25] MEDS ORDERED: Zofran 4 MG/2 ML VIAL ONE (11:48)
[2018-08-25] MEDS ORDERED: TYLENOL EXTRA STRENGTH 500 MG PO STA (12:24)
[2018-08-25 12:26] LABS: Lactic Acid 5.8 (0.4-2.0)
[2018-08-25] MEDS ORDERED: TYLENOL EXTRA STRENGTH 500 MG ONE (12:26)
[2018-08-25] MEDS ORDERED: Sodium Chloride 0.9% 1000 ML 1,000 ML ONE ×2 (12:26→15:12)
--- NOTE | 2018-08-25 12:38 | XRAY ---
Indication: Abdomen pain. Fever. Multiple contiguous axial images obtained through the abdomen and pelvis without contrast as ordered. Comparison: None Lung bases demonstrates mild/moderate dependent atelectasis, left greater than right. Tiny right base calcified granuloma. Heart is not enlarged with prominent epicardiac fat. Left abdomen not completely included in the [id number] due to patient body habitus. Noncontrasted stomach and bowel loops appear nonobstructed. Normal appendix. Scattered descending and sigmoid diverticulosis without diverticulitis. No free fluid/air. A few small bilateral exophytic renal cysts, largest right midpole measuring 1.5 cm. 1.7 cm left adrenal adenoma. Previous cholecystectomy. Mild diffuse fatty liver. Spleen is enlarged measuring 14.4 cm in CC dimension. Remaining liver, pancreas, spleen, adrenal glands, kidneys, ureters, bladder, and uterus appear unremarkable for noncontrast exam. Mild aortoiliac calcifications without AAA. Osseous structures intact with mild degenerative changes throughout the thoracolumbar spine. No ventral or inguinal hernias. Impression: 1. Limited exam due to body habitus. 2. No acute intra-abdominal/pelvic abnormalities on this noncontrast exam. 3. Incidental colonic diverticulosis, bilateral renal cysts, left adrenal adenoma, fatty liver, and splenomegaly. CT DI 20.45
[2018-08-25 12:40] LABS: Hematocrit 37.8 % (35-47); Hemoglobin 12.2 gm/dl (12.0-16.0); Mean Cell Volume 95.9 fl (78-100); Mean Corpuscular Hgb Concent. 32.3 g/dl (32-36); Mean Platelet Volume 10.5 fl (6-9.5); Platelet Count 225 K/mm3 (150-450); Red Blood Count 3.94 M/mm3 (4.1-5.4); Red Cell Distribution Width 16.3 % (11.5-14.0); White Blood Count 21.6 K/mm3 (4.0-10.5)
--- NOTE | 2018-08-25 12:41 | XRAY ---
Indication: Fever. Comparison: March 22, 2017. Portable chest less inflated without focal infiltrate, consolidation, or large effusion. Heart is not enlarged for AP portable technique. CT proven prominent left epicardiac fat. Bony thorax intact with mild degenerative changes. Impression: Stable nonacute underinflated chest.
[2018-08-25 12:45] LABS: Mean Corpuscular Hemoglobin 30.9 pg (26-32)
[2018-08-25 12:47] LABS: INR 1.13 (0.8-3.0); PROTIME 13.2 SECONDS (9.95-12.35)
[2018-08-25 12:52] LABS: ALBUMIN 3.8 g/dL (3.5-5.0); ANION GAP 25.5 MEQ/L (5-15); BILIRUBIN,TOTAL 2.9 mg/dL (0.2-1.3); Calcium 9.7 mg/dL (8.4-10.2); Creatinine 1 3.79 mg/dL (0.52-1.04); Potassium 5.5 mmol/L (3.5-5.1); Total Protein 6.8 g/dL (6.3-8.2)
[2018-08-25 12:59] LABS: Appearance TURBID (CLEAR); Bacteria MANY /HPF (NEGATIVE); Bilirubin NEGATIVE (NEGATIVE); Blood SMALL Ery/ul (0-5); Epithelial Cells MODERATE /HPF (FEW); Glucose NEGATIVE (NEGATIVE); Ketones TRACE (NEGATIVE); Leukocyte Esterase MODERATE (NEGATIVE); Mucus SLIGHT /HPF (NEGATIVE); Nitrite NEGATIVE (NEGATIVE); Protein,Urine Dip 100 (Negative); RBC 51-100 /HPF (0-2); Specific Gravity 1.018 (1.005-1.025); Urobilinogen 2 mg/dL (0-1); WBC >100 /HPF (0-5)
[2018-08-25 13:08] LABS: BAND 7 % (0.0-2.0); Lymphocytes 1 % (24-44); Monocyte 1 % (0.0-12.0); Neutrophils 91 % (36.0-66.0); Platelet Estimate NORMAL (NORMAL); Total Cells Counted 100; Toxic Granulation 1+
[2018-08-25] MEDS ORDERED: Zosyn 3.375GM/100 Ml D5W 3.375 GM/100 ML IVPB IV STA (13:40)
[2018-08-25] MEDS ORDERED: Zosyn 3.375GM/100 Ml D5W 3.375 GM/100 ML IVPB IV ONE (13:58)
[2018-08-25 14:59] LABS: Lactic Acid 4.1 (0.4-2.0)
[2018-08-25] MEDS ORDERED: NovoLOG Insulin SQ PRN (16:04)
[2018-08-25] MEDS ORDERED: TYLENOL 325 MG PO PRN (16:04)
[2018-08-25] MEDS ORDERED: Zosyn 3.375GM/100 Ml D5W 3.375 GM/100 ML IVPB IV SCH (18:00)
[2018-08-25 18:04] LABS: Lactic Acid 2.7 (0.4-2.0)
[2018-08-25] MEDS: ENOXAPARIN SODIUM SQ SCH (18:16)
[2018-08-25] MEDS: Sodium Chloride 0.9% 1000 ML 1,000 ML IV SCH (20:22)
[2018-08-25] MEDS: Zosyn 2.25 GM 2.25 GM in Dextrose 5%/Water IV Soln. 100ML PLUS BAG 100 ML IV SCH (22:19)
[2018-08-25] MEDS: FEOSOL 325 MG PO SCH (22:19)
[2018-08-26] MEDS: Zosyn 2.25 GM 2.25 GM in Dextrose 5%/Water IV Soln. 100ML PLUS BAG 100 ML IV SCH ×3 (05:14→22:34)
[2018-08-26 06:49] LABS: ANION GAP 18.6 MEQ/L (5-15); BILIRUBIN,TOTAL 3.7 mg/dL (0.2-1.3); Calcium 8.4 mg/dL (8.4-10.2); Creatinine 1 4.11 mg/dL (0.52-1.04); Potassium 4.5 mmol/L (3.5-5.1)
[2018-08-26 06:50] LABS: Basophil (Absolute #) 0 (0-0.4); Eosinophil % 0.4 % (0.00-5.0); Eosinophil (Absolute #) 0.05 (0-0.5); Granulocyte Absolute (ANC) 12.94 (1.4-6.9); Granulocytes % 97.2 % (36.0-66.0); Hematocrit 32.3 % (35-47); Hemoglobin 10.6 gm/dl (12.0-16.0); Lymphocyte (Absolute #) 0.19 (1.0-4.6); Lymphocytes % 1.4 % (24.0-44.0); Mean Cell Volume 96.4 fl (78-100); Mean Corpuscular Hemoglobin 31.6 pg (26-32); Mean Corpuscular Hgb Concent. 32.8 g/dl (32-36); Mean Platelet Volume 10.8 fl (6-9.5); Monocyte (Absolute #) 0.13 (0.0-1.3); Platelet Count 170 K/mm3 (150-450); Red Blood Count 3.35 M/mm3 (4.1-5.4); Red Cell Distribution Width 16.1 % (11.5-14.0); White Blood Count 13.3 K/mm3 (4.0-10.5)
--- NOTE | 2018-08-26 08:36 | PCM.HP ---
History of Present Illness - Chief Complaint Chief Complaint: urosepsis History of Present Illness: is a 72 year old female from [place] who states she developed profuse vomiting and pain in her stomach the night before arrival, she had some mild cough, no signs of symptoms or urinary infection. was sent to ER for evaluation and found to have sepsis and UTI, worsening chronic renal function, tachycardia and hypotension. - Review of Systems Constitutional: Fever, Chills Respiratory: Cough Cardiac: No Chest Pain, No Edema, No Syncope Abdominal/Gastrointestinal: Abdominal Pain, Nausea, Vomiting Genitourinary Symptoms: No Dysuria Skin: No Rash All Other Systems: Reviewed and Negative Medications & Allergies Home Medications: Home Medication List Acetaminophen 325 mg [Tylenol 325 mg] 650 mg PO Q4H PRN PRN 08/25/18 [ History Confirmed 08/25/18] Albuterol Sulfate [Ventolin Hfa] 2 puff IH Q4HPRN PRN 08/25/18 [History Confirmed 08/25/18] Allopurinol 300 mg [Zyloprim 300 mg] 600 mg PO DAILY 08/25/18 [History Confirmed 08/25/18] Aspirin EC 81 mg [Ecotrin 81 mg] 81 mg PO DAILY 08/25/18 [History Confirmed 08/25/18] B Complex W-C No.20/Folic Acid [[place] Caps Softgel] 1 cap PO DAILY 08/25/18 [ History Confirmed 08/25/18] Bumetanide [Bumex] 2 mg PO BID 08/25/18 [History Confirmed 08/25/18] Cetirizine HCl [Zyrtec] 10 mg PO DAILY 08/25/18 [History Confirmed 08/25/18] Cyanocobalamin (Vitamin B-12) [Vitamin B-12] 1,000 mcg PO DAILY 08/25/18 [ History Confirmed 08/25/18] Ergocalciferol (Vitamin D2) [Vitamin D2] 50,000 unit PO Q7D 08/25/18 [History Confirmed 08/25/18] Ferrous Sulfate [Feosol] 325 mg PO BID 08/25/18 [History Confirmed 08/25/18] Fluticasone Propionate [Flonase NASAL] 2 spray NS DAILY 08/25/18 [History Confirmed 08/25/18] Hydrocodone/APAP 5-325 Tab^^^ [[place] 5-325 Tablet^^^] 1 tab PO Q6HPRN PRN MDD 6 08/25/18 [History Confirmed 08/25/18] Hydrocortisone 2.5% 30 gm [Anusol-Hc 2.5% Cream 30 gm] 30 gm TP BIDPRN PRN 08/25/18 [History Confirmed 08/25/18] Hydroxyzine HCl 25 mg [Atarax 25 mg] 12.5 mg PO HS 08/25/18 [History Confirmed 08/25/18] Hydroxyzine HCl 25 mg [Atarax 25 mg] 12.5 mg PO Q8HPRN PRN 08/25/18 [ History Confirmed 08/25/18] Insulin Aspart [NovoLOG Insulin] 0 unit SQ UD 08/25/18 [History Confirmed ] Insulin Detemir [Levemir] 20 unit SQ QAM 08/25/18 [History Confirmed 08/25/18] Lanolin Alcohol/Mo/W.pet/[place] [Eucerin Creme] 57 gm TP UD PRN 08/25/18 [ History Confirmed 08/25/18] Magnesium Hydroxide 30 ml [Milk of Magnesia 30 ml] 30 ml PO DAILY PRN PRN 08/25/18 [History Confirmed 08/25/18] Nystatin Powder 15 gm [Nystop Powder 15 gm] 10 gm TP TID 08/25/18 [ History Confirmed 08/25/18] Ondansetron ODT 4 MG [Zofran Odt 4 mg] 4 mg PO Q6H PRN PRN 08/25/18 [ History Confirmed 08/25/18] Polyethylene Glycol 3350 17 gm [Miralax Powder 17GM PACKET] 17 gm PO DAILY [History Confirmed 08/25/18] Potassium Chloride 10 Meq Tab* [Klor Con 10 MEQ] 20 meq PO 08,12 08/25/18 [ History Confirmed 08/25/18] Potassium Chloride 10 Meq Tab* [Klor Con 10 MEQ] 40 meq PO 1600 08/25/18 [ History Confirmed 08/25/18] Sertraline HCl 50 mg [Zoloft 50 mg Tablet] 75 mg PO DAILY 08/25/18 [History Confirmed 08/25/18] Sodium Bicarbonate 650 mg PO DAILY 08/25/18 [History Confirmed 08/25/18] Spironolactone 25 mg [Aldactone 25 MG] 25 mg PO DAILY 08/25/18 [History Confirmed 08/25/18] Tramadol HCl 50 mg [Ultram 50 mg] 50 mg PO TIDPRN PRN 08/25/18 [History Confirmed 08/25/18] metOLazone [Metolazone] 5 mg PO DAILY 08/25/18 [History Confirmed 08/25/18] Allergies/Adverse Reactions: Allergies Allergy/AdvReac Type Severity Reaction Status Date / Time guaifenesin [From Mucinex] Allergy Mild unsure Verified 03/21/17 16:19 levofloxacin [From Levaquin] Allergy Mild unsure Verified 03/21/17 16:19 nabumetone [From Relafen] Allergy Mild UNSURE Verified 03/21/17 16:19 - Past Medical History Past Medical History: Yes Neurological History: No Pertinent History ENT History: No Pertinent History Cardiac History: Congestive Heart Failure, Hypertension Respiratory History: CHF, COPD, Other Endocrine Medical History: Adrenal Insufficiency, Diabetes Type II Musculoskelatal History: Osteoarthritis GI Medical History: No Pertinent History History: Renal Disease Pyscho-Social History: Depression Reproductive Disorders: No Pertinent History Comment: anemia - Female History Are you now?: No - Past Surgical History Past Surgical History: Yes Neuro Surgical History: No Pertinent History Cardiac History: No Pertinent History Respiratory Surgery: No Pertinent History GI Surgical History: Cholecystectomy Genitourinary Surgical Hx: No Pertinent History Musculskeletal Surgical Hx: Orthopedic Surgery Female Surgical History: No Pertinent History Other Surgical History: R knee replacement - Social History Smoking Status: Former smoker Exposure to second hand smoke: Yes Alcohol: None Drug Use: none - Physical Exam Vital Signs: Vital Signs - 24 hr Temp Pulse Resp BP Pulse Ox 08/26/18 08:00 97.7 F 95 H 21 79/39 96 08/26/18 04:10 97.9 F 99 H 20 118/55 97 08/26/18 04:00 20 08/26/18 00:00 97.6 F 89 20 80/45 97 08/25/18 20:00 97.9 F 96 H 18 93/45 98 08/25/18 17:25 96 08/25/18 16:21 98.7 F 122 H 20 112/55 96 08/25/18 15:09 94 L 08/25/18 15:01 99.4 F 118 H 20 98/30 98 08/25/18 13:50 99.6 F 120 H 18 100/46 98 08/25/18 12:22 101.4 F 126 H 20 117/93 98 08/25/18 11:26 101.4 F 134 H 22 117/93 94 L General Appearance: no apparent distress, obese Neurologic Exam: alert, oriented x 3, cooperative Respiratory Exam: normal breath sounds, lungs clear, No respiratory distress Cardiovascular Exam: regular rate/rhythm, normal heart sounds, normal peripheral pulses Gastrointestinal/Abdomen Exam: soft, normal bowel sounds, No tenderness, No mass Extremity Exam: normal inspection, normal range of motion, pelvis stable Skin Exam: normal color, warm, dry, No rash Results - Labs Lab/Micro Results: Accuchecks Date 08/26/18 Date 08/25/18 Time 08:06 Time 16:30 Accucheck Value: 129 Accucheck Value: 182 Accucheck Value: 220 Lab Results-Last 24 Hours 08/25/18 08/25/18 08/25/18 Range/Units 12:20 12:20 12:20 WBC 21.6 H (4.0-10.5) K/mm3 RBC 3.94 L (4.1-5.4) M/mm3 Hgb 12.2 (12.0-16.0) gm/dl Hct 37.8 (35-47) % MCV 95.9 (78-100) fl MCH 30.9 (26-32) pg MCHC 32.3 (32-36) g/dl RDW 16.3 H (11.5-14.0) % Plt Count 225 (150-450) K/mm3 MPV 10.5 H (6-9.5) fl Gran % (36.0-66.0) % Eos # (Auto) (0-0.5) Absolute Lymphs (auto) (1.0-4.6) Absolute Monos (auto) (0.0-1.3) Lymphocytes % (24.0-44.0) % Monocytes % (0.0-12.0) % Eosinophils % (0.00-5.0) % Basophils % (0.0-0.4) % Absolute Granulocytes (1.4-6.9) Segmented Neutrophils 91 H (36.0-66.0) % Band Neutrophils 7 H (0.0-2.0) % Lymphocytes (Manual) 1 L (24-44) % Monocytes (Manual) 1 (0.0-12.0) % Basophils # (0-0.4) Toxic Granulation 1+ Platelet Estimate NORMAL (NORMAL) RBC Morphology NORMAL PT 13.2 H (9.95-12.35) SECONDS INR 1.13 (0.8-3.0) Sodium 136 L (137-145) mmol/L Potassium 5.5 H (3.5-5.1) mmol/L Chloride 97 L (98-107) mmol/L Carbon Dioxide 19 L (22-30) mmol/L Anion Gap 25.5 H (5-15) MEQ/L BUN 94 H (7-17) mg/dL Creatinine 3.79 H (0.52-1.04) mg/dL Estimated GFR 12.4 ML/MIN Glucose 232 H (74-106) mg/dL Lactic Acid (0.4-2.0) Calcium 9.7 (8.4-10.2) mg/dL Total Bilirubin 2.90 H (0.2-1.3) mg/dL AST 246 H (14-36) U/L ALT 179 H (0-35) U/L Alkaline Phosphatase 141 H (38-126) U/L Troponin I (0.000-0.034) ng/mL Serum Total Protein 6.8 (6.3-8.2) g/dL Albumin 3.8 (3.5-5.0) g/dL Prealbumin (17.6-36.0) mg/dL Lipase 114 (23-300) U/L Urine Color (YELLOW) Urine Appearance (CLEAR) Urine pH (5-6) Ur Specific [place] (1.005-1.025) Urine Protein (Negative) Urine Ketones (NEGATIVE) Urine Blood (0-5) Ike/ul Urine Nitrite (NEGATIVE) Urine Bilirubin (NEGATIVE) Urine Urobilinogen (0-1) mg/dL Ur Leukocyte Esterase (NEGATIVE) Urine WBC (Auto) (0-5) /HPF Urine RBC (Auto) (0-2) /HPF U Epithel Cells (Auto) (FEW) /HPF Urine Bacteria (Auto) (NEGATIVE) /HPF Urine Mucus (Auto) (NEGATIVE) /HPF Urine Culture Reflexed (NO) Urine Glucose (NEGATIVE) mg/dL Stool Occult Bld Scrn (NEGATIVE) Slides for Path Review 08/25/18 08/25/18 08/25/18 Range/Units 12:20 12:21 12:46 WBC (4.0-10.5) K/mm3 RBC (4.1-5.4) M/mm3 Hgb (12.0-16.0) gm/dl Hct (35-47) % MCV (78-100) fl MCH (26-32) pg MCHC (32-36) g/dl RDW (11.5-14.0) % Plt Count (150-450) K/mm3 MPV (6-9.5) fl Gran % (36.0-66.0) % Eos # (Auto) (0-0.5) Absolute Lymphs (auto) (1.0-4.6) Absolute Monos (auto) (0.0-1.3) Lymphocytes % (24.0-44.0) % Monocytes % (0.0-12.0) % Eosinophils % (0.00-5.0) % Basophils % (0.0-0.4) % Absolute Granulocytes (1.4-6.9) Segmented Neutrophils (36.0-66.0) % Band Neutrophils (0.0-2.0) % Lymphocytes (Manual) (24-44) % Monocytes (Manual) (0.0-12.0) % Basophils # (0-0.4) Toxic Granulation Platelet Estimate (NORMAL) RBC Morphology PT (9.95-12.35) SECONDS INR (0.8-3.0) Sodium (137-145) mmol/L Potassium (3.5-5.1) mmol/L Chloride (98-107) mmol/L Carbon Dioxide (22-30) mmol/L Anion Gap (5-15) MEQ/L BUN (7-17) mg/dL Creatinine (0.52-1.04) mg/dL Estimated GFR ML/MIN Glucose (74-106) mg/dL Lactic Acid 5.8 H (0.4-2.0) Calcium (8.4-10.2) mg/dL Total Bilirubin (0.2-1.3) mg/dL AST (14-36) U/L ALT (0-35) U/L Alkaline Phosphatase (38-126) U/L Troponin I 0.013 (0.000-0.034) ng/mL Serum Total Protein (6.3-8.2) g/dL Albumin (3.5-5.0) g/dL Prealbumin (17.6-36.0) mg/dL Lipase (23-300) U/L Urine Color (YELLOW) Urine Appearance (CLEAR) Urine pH (5-6) Ur Specific [place] (1.005-1.025) Urine Protein (Negative) Urine Ketones (NEGATIVE) Urine Blood (0-5) Ike/ul Urine Nitrite (NEGATIVE) Urine Bilirubin (NEGATIVE) Urine Urobilinogen (0-1) mg/dL Ur Leukocyte Esterase (NEGATIVE) Urine WBC (Auto) (0-5) /HPF Urine RBC (Auto) (0-2) /HPF U Epithel Cells (Auto) (FEW) /HPF Urine Bacteria (Auto) (NEGATIVE) /HPF Urine Mucus (Auto) (NEGATIVE) /HPF Urine Culture Reflexed (NO) Urine Glucose (NEGATIVE) mg/dL Stool Occult Bld Scrn NEGATIVE (NEGATIVE) Slides for Path Review 08/25/18 08/25/18 08/25/18 Range/Units 12:48 14:40 14:45 WBC (4.0-10.5) K/mm3 RBC (4.1-5.4) M/mm3 Hgb (12.0-16.0) gm/dl Hct (35-47) % MCV (78-100) fl MCH (26-32) pg MCHC (32-36) g/dl RDW (11.5-14.0) % Plt Count (150-450) K/mm3 MPV (6-9.5) fl Gran % (36.0-66.0) % Eos # (Auto) (0-0.5) Absolute Lymphs (auto) (1.0-4.6) Absolute Monos (auto) (0.0-1.3) Lymphocytes % (24.0-44.0) % Monocytes % (0.0-12.0) % Eosinophils % (0.00-5.0) % Basophils % (0.0-0.4) % Absolute Granulocytes (1.4-6.9) Segmented Neutrophils (36.0-66.0) % Band Neutrophils (0.0-2.0) % Lymphocytes (Manual) (24-44) % Monocytes (Manual) (0.0-12.0) % Basophils # (0-0.4) Toxic Granulation Platelet Estimate (NORMAL) RBC Morphology PT (9.95-12.35) SECONDS INR (0.8-3.0) Sodium (137-145) mmol/L Potassium (3.5-5.1) mmol/L Chloride (98-107) mmol/L Carbon Dioxide (22-30) mmol/L Anion Gap (5-15) MEQ/L BUN (7-17) mg/dL Creatinine (0.52-1.04) mg/dL Estimated GFR ML/MIN Glucose (74-106) mg/dL Lactic Acid 4.1 H (0.4-2.0) Calcium (8.4-10.2) mg/dL Total Bilirubin (0.2-1.3) mg/dL AST (14-36) U/L ALT (0-35) U/L Alkaline Phosphatase (38-126) U/L Troponin I 0.014 (0.000-0.034) ng/mL Serum Total Protein (6.3-8.2) g/dL Albumin (3.5-5.0) g/dL Prealbumin (17.6-36.0) mg/dL Lipase (23-300) U/L Urine Color YELLOW (YELLOW) Urine Appearance TURBID (CLEAR) Urine pH 5.0 (5-6) Ur Specific [place] 1.018 (1.005-1.025) Urine Protein 100 (Negative) Urine Ketones TRACE (NEGATIVE) Urine Blood SMALL (0-5) Ike/ul Urine Nitrite NEGATIVE (NEGATIVE) Urine Bilirubin NEGATIVE (NEGATIVE) Urine Urobilinogen 2 (0-1) mg/dL Ur Leukocyte Esterase MODERATE (NEGATIVE) Urine WBC (Auto) >100 (0-5) /HPF Urine RBC (Auto) 51-100 (0-2) /HPF U Epithel Cells (Auto) MODERATE (FEW) /HPF Urine Bacteria (Auto) MANY (NEGATIVE) /HPF Urine Mucus (Auto) SLIGHT (NEGATIVE) /HPF Urine Culture Reflexed ORDERED SEPARATELY (NO) Urine Glucose NEGATIVE (NEGATIVE) mg/dL Stool Occult Bld Scrn (NEGATIVE) Slides for Path Review 08/25/18 08/25/18 08/25/18 Range/Units 17:55 17:55 17:55 WBC (4.0-10.5) K/mm3 RBC (4.1-5.4) M/mm3 Hgb (12.0-16.0) gm/dl Hct (35-47) % MCV (78-100) fl MCH (26-32) pg MCHC (32-36) g/dl RDW (11.5-14.0) % Plt Count (150-450) K/mm3 MPV (6-9.5) fl Gran % (36.0-66.0) % Eos # (Auto) (0-0.5) Absolute Lymphs (auto) (1.0-4.6) Absolute Monos (auto) (0.0-1.3) Lymphocytes % (24.0-44.0) % Monocytes % (0.0-12.0) % Eosinophils % (0.00-5.0) % Basophils % (0.0-0.4) % Absolute Granulocytes (1.4-6.9) Segmented Neutrophils (36.0-66.0) % Band Neutrophils (0.0-2.0) % Lymphocytes (Manual) (24-44) % Monocytes (Manual) (0.0-12.0) % Basophils # (0-0.4) Toxic Granulation Platelet Estimate (NORMAL) RBC Morphology PT (9.95-12.35) SECONDS INR (0.8-3.0) Sodium (137-145) mmol/L Potassium (3.5-5.1) mmol/L Chloride (98-107) mmol/L Carbon Dioxide (22-30) mmol/L Anion Gap (5-15) MEQ/L BUN (7-17) mg/dL Creatinine (0.52-1.04) mg/dL Estimated GFR ML/MIN Glucose (74-106) mg/dL Lactic Acid 2.7 H (0.4-2.0) Calcium (8.4-10.2) mg/dL Total Bilirubin (0.2-1.3) mg/dL AST (14-36) U/L ALT (0-35) U/L Alkaline Phosphatase (38-126) U/L Troponin I 0.016 (0.000-0.034) ng/mL Serum Total Protein (6.3-8.2) g/dL Albumin (3.5-5.0) g/dL Prealbumin 21.83 (17.6-36.0) mg/dL Lipase (23-300) U/L Urine Color (YELLOW) Urine Appearance (CLEAR) Urine pH (5-6) Ur Specific [place] (1.005-1.025) Urine Protein (Negative) Urine Ketones (NEGATIVE) Urine Blood (0-5) Ike/ul Urine Nitrite (NEGATIVE) Urine Bilirubin (NEGATIVE) Urine Urobilinogen (0-1) mg/dL Ur Leukocyte Esterase (NEGATIVE) Urine WBC (Auto) (0-5) /HPF Urine RBC (Auto) (0-2) /HPF U Epithel Cells (Auto) (FEW) /HPF Urine Bacteria (Auto) (NEGATIVE) /HPF Urine Mucus (Auto) (NEGATIVE) /HPF Urine Culture Reflexed (NO) Urine Glucose (NEGATIVE) mg/dL Stool Occult Bld Scrn (NEGATIVE) Slides for Path Review 08/25/18 08/25/18 08/25/18 Range/Units 20:54 20:55 23:56 WBC (4.0-10.5) K/mm3 RBC (4.1-5.4) M/mm3 Hgb (12.0-16.0) gm/dl Hct (35-47) % MCV (78-100) fl MCH (26-32) pg MCHC (32-36) g/dl RDW (11.5-14.0) % Plt Count (150-450) K/mm3 MPV (6-9.5) fl Gran % (36.0-66.0) % Eos # (Auto) (0-0.5) Absolute Lymphs (auto) (1.0-4.6) Absolute Monos (auto) (0.0-1.3) Lymphocytes % (24.0-44.0) % Monocytes % (0.0-12.0) % Eosinophils % (0.00-5.0) % Basophils % (0.0-0.4) % Absolute Granulocytes (1.4-6.9) Segmented Neutrophils (36.0-66.0) % Band Neutrophils (0.0-2.0) % Lymphocytes (Manual) (24-44) % Monocytes (Manual) (0.0-12.0) % Basophils # (0-0.4) Toxic Granulation Platelet Estimate (NORMAL) RBC Morphology PT (9.95-12.35) SECONDS INR (0.8-3.0) Sodium (137-145) mmol/L Potassium (3.5-5.1) mmol/L Chloride (98-107) mmol/L Carbon Dioxide (22-30) mmol/L Anion Gap (5-15) MEQ/L BUN (7-17) mg/dL Creatinine (0.52-1.04) mg/dL Estimated GFR ML/MIN Glucose (74-106) mg/dL Lactic Acid 1.8 (0.4-2.0) Calcium (8.4-10.2) mg/dL Total Bilirubin (0.2-1.3) mg/dL AST (14-36) U/L ALT (0-35) U/L Alkaline Phosphatase (38-126) U/L Troponin I 0.014 0.013 (0.000-0.034) ng/mL Serum Total Protein (6.3-8.2) g/dL Albumin (3.5-5.0) g/dL Prealbumin (17.6-36.0) mg/dL Lipase (23-300) U/L Urine Color (YELLOW) Urine Appearance (CLEAR) Urine pH (5-6) Ur Specific [place] (1.005-1.025) Urine Protein (Negative) Urine Ketones (NEGATIVE) Urine Blood (0-5) Ike/ul Urine Nitrite (NEGATIVE) Urine Bilirubin (NEGATIVE) Urine Urobilinogen (0-1) mg/dL Ur Leukocyte Esterase (NEGATIVE) Urine WBC (Auto) (0-5) /HPF Urine RBC (Auto) (0-2) /HPF U Epithel Cells (Auto) (FEW) /HPF Urine Bacteria (Auto) (NEGATIVE) /HPF Urine Mucus (Auto) (NEGATIVE) /HPF Urine Culture Reflexed (NO) Urine Glucose (NEGATIVE) mg/dL Stool Occult Bld Scrn (NEGATIVE) Slides for Path Review 08/26/18 08/26/18 Range/Units 05:20 05:20 WBC 13.3 H (4.0-10.5) K/mm3 RBC 3.35 L (4.1-5.4) M/mm3 Hgb 10.6 L (12.0-16.0) gm/dl Hct 32.3 L (35-47) % MCV 96.4 (78-100) fl MCH 31.6 (26-32) pg MCHC 32.8 (32-36) g/dl RDW 16.1 H (11.5-14.0) % Plt Count 170 (150-450) K/mm3 MPV 10.8 H (6-9.5) fl Gran % 97.2 H (36.0-66.0) % Eos # (Auto) 0.05 (0-0.5) Absolute Lymphs (auto) 0.19 L (1.0-4.6) Absolute Monos (auto) 0.13 (0.0-1.3) Lymphocytes % 1.4 L (24.0-44.0) % Monocytes % 1.0 (0.0-12.0) % Eosinophils % 0.4 (0.00-5.0) % Basophils % 0.0 (0.0-0.4) % Absolute Granulocytes 12.94 H (1.4-6.9) Segmented Neutrophils (36.0-66.0) % Band Neutrophils (0.0-2.0) % Lymphocytes (Manual) (24-44) % Monocytes (Manual) (0.0-12.0) % Basophils # 0 (0-0.4) Toxic Granulation Platelet Estimate (NORMAL) RBC Morphology PT (9.95-12.35) SECONDS INR (0.8-3.0) Sodium 135 L (137-145) mmol/L Potassium 4.5 (3.5-5.1) mmol/L Chloride 100 (98-107) mmol/L Carbon Dioxide 21 L (22-30) mmol/L Anion Gap 18.6 H (5-15) MEQ/L BUN 99 H (7-17) mg/dL Creatinine 4.11 H (0.52-1.04) mg/dL Estimated GFR 11.3 ML/MIN Glucose 134 H (74-106) mg/dL Lactic Acid (0.4-2.0) Calcium 8.4 (8.4-10.2) mg/dL Total Bilirubin 3.70 H (0.2-1.3) mg/dL AST 126 H (14-36) U/L ALT 145 H (0-35) U/L Alkaline Phosphatase 96 (38-126) U/L Troponin I (0.000-0.034) ng/mL Serum Total Protein 6.0 L (6.3-8.2) g/dL Albumin 3.0 L (3.5-5.0) g/dL Prealbumin (17.6-36.0) mg/dL Lipase (23-300) U/L Urine Color (YELLOW) Urine Appearance (CLEAR) Urine pH (5-6) Ur Specific [place] (1.005-1.025) Urine Protein (Negative) Urine Ketones (NEGATIVE) Urine Blood (0-5) Ike/ul Urine Nitrite (NEGATIVE) Urine Bilirubin (NEGATIVE) Urine Urobilinogen (0-1) mg/dL Ur Leukocyte Esterase (NEGATIVE) Urine WBC (Auto) (0-5) /HPF Urine RBC (Auto) (0-2) /HPF U Epithel Cells (Auto) (FEW) /HPF Urine Bacteria (Auto) (NEGATIVE) /HPF Urine Mucus (Auto) (NEGATIVE) /HPF Urine Culture Reflexed (NO) Urine Glucose (NEGATIVE) mg/dL Stool Occult Bld Scrn (NEGATIVE) Slides for Path Review Microbiology 08/25/18 12:53 Urine Culture - Preliminary Catherized GRAM NEGATIVE ID AND SENSITIVITY PENDING Accuchecks Date 08/26/18 Date 08/25/18 Time 08:06 Time 16:30 Accucheck Value: 129 Accucheck Value: 182 Accucheck Value: 220 - Radiology Impressions Radiology Exams & Impressions: Radiology Procedures Category Date Time Status ABDOMEN AND PELVIS W/0 CONTRAS [CT] Stat Exams 08/25/18 11:36 Completed CHEST 1 VIEW (PORTABLE) Stat Exams 08/25/18 11:38 Completed - Other Procedures and Tests Respiratory Therapy 08/25/18 17:25 Respiratory Therapy Assessment DAILY Assessment/Plan (1) Sepsis Current Visit: Yes Status: Acute Qualifiers: Sepsis type: sepsis due to unspecified organism Qualified Code(s): A41.9 - Sepsis, unspecified organism Assessment & Plan: tachycardia improved, still has some mild hypotension but is asymptomatic and perfusing well (2) UTI (urinary tract infection) Current Visit: Yes Status: Acute Assessment & Plan: was started on zosyn in ER, await urine and blood cultures for now. clinically appears to be improving. Code(s): N39.0 - URINARY TRACT INFECTION, SITE NOT SPECIFIED (3) Acute on chronic renal failure Current Visit: Yes Status: Acute Assessment & Plan: slight worsening since arrival, baseline cr around 2. patient follows with Dr Mejia so he has been consulted but she states she is not interested in dialysis although her code status is full code currently. Code(s): N17.9 - ACUTE KIDNEY FAILURE, UNSPECIFIED; N18.9 - CHRONIC KIDNEY DISEASE, UNSPECIFIED
[2018-08-26] MEDS ORDERED: MILK OF MAGNESIA 30 ML PO PRN (10:29)
[2018-08-26] MEDS ORDERED: Ventolin Hfa MDI IH PRN (10:29)
[2018-08-26] MEDS ORDERED: PROVENTIL COMMON CANISTER IH PRN (10:40)
[2018-08-26] MEDS ORDERED: MEDICATION INTERVENTION PO SCH (10:45)
[2018-08-26] MEDS: FEOSOL 325 MG PO SCH ×2 (10:51→22:34)
[2018-08-26] MEDS ORDERED: Miralax Powder 17GM PACKET PO SCH (11:00)
[2018-08-26] MEDS ORDERED: ZYLOPRIM 300 MG PO SCH (11:00)
[2018-08-26] MEDS ORDERED: NON-FORMULARY ITEM PO SCH (11:00)
[2018-08-26] MEDS ORDERED: ECOTRIN 81 MG PO SCH (11:00)
[2018-08-26] MEDS ORDERED: ZOLOFT 50 MG TABLET PO SCH (11:00)
[2018-08-26] MEDS ORDERED: Flonase NASAL NS SCH (11:00)
[2018-08-26] MEDS ORDERED: Lasix 40 MG/4 ML IV ONE (12:41)
--- NOTE | 2018-08-26 12:42 | CONS ---
CONSULT DATE: 08/26/2018 REASON FOR CONSULT: Acute kidney disease, underlying chronic kidney disease stage IV. HISTORY: The patient is a 72 year-old lady who has history of multiple medical problems including chronic kidney disease stage IV follows with Dr. Mejia. Her most recent labs on 08/08/2018 showed creatinine of 2, BUN 70 and glomerular filtration rate of about 24. She has hypertensive nephrosclerosis, atherosclerotic vascular disease causing chronic kidney disease. She has had episodes of acute kidney injury and has been admitted at [facility] before. She presented yesterday with complaints of ongoing vomiting for a few days. She was evaluated in the emergency room. CT scan was done. UA was done and labs were done. She was found to have urinary tract infection with sepsis. She had elevated white count and elevated lactic acid. CT scan of the abdomen was negative otherwise. She was admitted for urinary tract infection with sepsis, acute kidney injury and chronic kidney disease. Nephrology was consulted. The patient complains of ongoing nausea and vomiting. She has poor urine output. Denies any hematuria. Denies any diarrhea or abdominal pain. Denies any chest pain or shortness of breath. Complains of generalized weakness. REVIEW OF SYSTEMS: All other systems reviewed and negative except for in history of present illness. PAST MEDICAL HISTORY: Chronic kidney disease stage IV secondary to hypertensive nephrosclerosis, atherosclerotic vascular disease, hypertension, adrenal insufficiency, diabetes mellitus type 2, osteoarthritis, edema. PAST SURGICAL HISTORY: Gallbladder surgery. Right knee replacement. MEDICATIONS: ALLERGIES: MUCINEX, LEVAQUIN. SOCIAL HISTORY: She denies any tobacco or chronic substance abuse. She lives at [facility]. FAMILY HISTORY: No history of kidney disease. PHYSICAL EXAMINATION: The patient is awake, alert and oriented, not in acute distress. Vital signs reviewed at bedside with systolic pressure running in the 70 to 90's. The rest of her vital signs were reviewed in detail over the last 24 hours. HEENT: Head - Atraumatic, normocephalic. Eyes - Positive icterus. No pallor. ENT: Mucosa moist. NECK: No JVD. Trachea midline. CHEST: Relatively clear, occasional bibasilar rale. No respiratory distress. CVS: Appears regular. Trace peripheral edema. ABDOMEN: Morbidly obese, positive bowel sounds. No organomegaly. EXTREMITIES: Trace peripheral edema. NEURO: Awake, alert, oriented. Following commands. PSYCH: Appropriate mood and affect. SKIN: Warm and dry. LAB DATA AND TESTS: Yesterday, hemoglobin 12.2, white blood cell 21.6, BUN 94, creatinine 3.79, potassium 5.5. Today, hemoglobin 10.3, white blood cell 13.3. Sodium 135, BUN 90, creatinine 4.1, bicarb 21, AST 26, ALT 145. CT scan and UA was reviewed. Urine showed positive leukocyte esterase. ASSESSMENT AND PLAN: A 72 year-old lady with multiple medical problems: 1) ACUTE KIDNEY INJURY, UNDERLYING CHRONIC KIDNEY DISEASE STAGE IV: Acute kidney injury probably secondary to underlying sepsis. Renal function progressively worse after a trial of Lasix she has poor urine output. We discussed risks and options, renal replacement therapy and dialysis also discussed with the patient in detail. She voiced her understanding and will proceed with it if necessary. At this time I will give her a trial of continuing fluids and trial of Lasix. I recommend continuation of all medications, avoid nephrotoxins. If in the next three or four hours her renal function does not improve she will likely require renal replacement therapy and dialysis. She has underlying chronic kidney disease as stated earlier secondary to hypertensive nephrosclerosis. 2) URINARY TRACT INFECTION WITH SEPSIS: I agree with empiric antibiotics and fluids. I will wait for the cultures. Conservative management. 3) HYPOTENSION: The blood pressure is low. I recommend holding all antihypertensives and monitor blood pressure. 4) DIABETES MELLITUS TYPE 2: Medication management per primary team. I will continue to follow her closely. Thank you for the consultation on this patient. Please do not hesitate to contact me for any questions.
[2018-08-26] MEDS: Zofran 4 MG/2 ML VIAL IV PRN (12:49)
[2018-08-26] MEDS: NYSTOP POWDER 15 GM TP SCH ×2 (14:07→22:34)
[2018-08-26] MEDS: Sodium Chloride 0.9% 1000 ML 1,000 ML IV SCH ×2 (17:20→17:21)
[2018-08-26] MEDS ORDERED: ENOXAPARIN SODIUM SQ SCH (18:00)
[2018-08-26] MEDS: ENOXAPARIN SODIUM SQ SCH (18:02)
[2018-08-26] MEDS ORDERED: Lasix 40 MG/4 ML IV SCH (19:00)
[2018-08-26] MEDS: NORCO 5/325 MG PO PRN (20:28)
[2018-08-27] MEDS: Zofran 4 MG/2 ML VIAL IV PRN ×2 (00:23→06:29)
[2018-08-27] MEDS: NORCO 5/325 MG PO PRN ×2 (02:13→08:39)
[2018-08-27] MEDS: Sodium Chloride 0.9% 1000 ML 1,000 ML IV SCH (02:21)
[2018-08-27 05:45] LABS: BASOPHIL % 0.1 % (0.0-0.4); Basophil (Absolute #) 0.01 (0-0.4); Eosinophil % 4.2 % (0.00-5.0); Eosinophil (Absolute #) 0.41 (0-0.5); Granulocyte Absolute (ANC) 8.94 (1.4-6.9); Granulocytes % 91.2 % (36.0-66.0); Hemoglobin 10.3 gm/dl (12.0-16.0); Lymphocyte (Absolute #) 0.27 (1.0-4.6); Lymphocytes % 2.8 % (24.0-44.0); Mean Cell Volume 96.1 fl (78-100); Mean Corpuscular Hemoglobin 30.9 pg (26-32); Mean Corpuscular Hgb Concent. 32.2 g/dl (32-36); Mean Platelet Volume 10.7 fl (6-9.5); Monocyte (Absolute #) 0.17 (0.0-1.3); Monocytes % 1.7 % (0.0-12.0); Platelet Count 149 K/mm3 (150-450); Red Blood Count 3.33 M/mm3 (4.1-5.4); White Blood Count 9.8 K/mm3 (4.0-10.5)
[2018-08-27 06:16] LABS: ALBUMIN 2.9 g/dL (3.5-5.0); ANION GAP 19.8 MEQ/L (5-15); BILIRUBIN,TOTAL 4.4 mg/dL (0.2-1.3); Creatinine 1 4.08 mg/dL (0.52-1.04)
[2018-08-27] MEDS: Zosyn 2.25 GM 2.25 GM in Dextrose 5%/Water IV Soln. 100ML PLUS BAG 100 ML IV SCH (06:17)
[2018-08-27 07:39] VITALS: PULSE 99; O2SAT 96
[2018-08-27 08:48] LABS: Slide Review 1 YES
[2018-08-27 09:40] VITALS: BP 102/52
[2018-08-27] MEDS ORDERED: NON-FORMULARY ITEM (Sodium Bicarbonate 650 MG) PO SCH (10:00)
[2018-08-27] MEDS ORDERED: [UNRECOGNIZED DRUG - REMARK] PO SCH (10:00)
--- NOTE | 2018-08-31 08:03 | DS ---
DISCHARGE DIAGNOSES: 1) Septicemia and UTI. 2) ACUTE ON CHRONIC RENAL FAILURE. 3) DIABETES MELLITUS TYPE 2. DISCHARGE PHYSICAL EXAMINATION: VITALS: Temperature current 96.8F, temperature max 97.9F, heart rate 99, respiratory rate 18, blood pressure 102/52. Oxygen saturation 96% on room air. GENERAL: The patient is pleasant lady lying in bed in no acute distress. She is oriented to person and place, says the year is 1917. However, she is oriented to who the President of [facility] is. CVS: Her heart has a regular rate and rhythm. No murmurs, gallops or rubs. CHEST: Clear to auscultation bilaterally. No crackles or wheezes. ABDOMEN: Soft, nontender, nondistended with normal bowel sounds. EXTREMITIES: No clubbing, cyanosis or edema. SKIN: Warm, dry and intact. The patient reports cough, stomach ache, right-sided neck pain, right arm pain, right knee pain, nausea with vomiting yesterday and continued nausea today. HOSPITAL COURSE: 1) Septicemia and UTI: She was started on Zosyn. Urine culture was sent. It came back right before she was transferred to [facility] and was growing Escherichia coli that was susceptible to Zosyn. She also has blood cultures pending. She was given a total of 5 liters of fluid, 2 liters in the emergency room and 3 liters since being on the floor. She has not required any pressers. 2) ACUTE ON CHRONIC RENAL FAILURE: Due to her acute renal failure and the fact that her creatinine did not improve, the zoology technical officer that was covering wanted her transferred to [facility] for dialysis. She saw Dr. Fraire yesterday and he thought she may very well need to be transferred for dialysis. The patient was agreeable to this and her brother was called to update him. 3) DIABETES MELLITUS TYPE 2: Currently well controlled. DISCHARGE MEDICATIONS: She is continued on all of her current medications. DISPOSITION: The patient was transferred to [facility] under the care of the Hospitalist, Dr. Jonatan Fields, who is accepting the transfer.
== END 2018-08-27 10:15 | disposition short-term general hospital (02) | DRG 872 ==
LOC: ED 11:21 → MED SURG 15:45
PROVIDERS: ADMIT Family Medicine; ATTEND Family Medicine
DX: A41.9 Sepsis, unspecified organism (principal); N39.0 Urinary tract infection, site not specified; N17.9 Acute kidney failure, unspecified; I12.9 Hypertensive chronic kidney disease with stage 1 through stage 4 chronic kidney disease, or unspecified chronic kidney disease; E11.22 Type 2 diabetes mellitus with diabetic chronic kidney disease; R10.9 Unspecified abdominal pain; R00.0 Tachycardia, unspecified; J44.9 Chronic obstructive pulmonary disease, unspecified; I95.9 Hypotension, unspecified; Z79.899 Other long term (current) drug therapy
CPT/HCPCS: 36000; 36415; 71045; 74176; 80053; 81001; 82270; 82962; 83605; 83690; 84134; 84484; 85025; 85610; 87040; 87077; 87086; 87186; 93005; 94760; 96360; 96361; 96365; 96374; 96375; 99285; J1650; J1940; J2405; J2543; A9270-GY

== ENCOUNTER 2020-11-11 10:28 | Emergency (ER) | payer MEDICARE ==
[2020-11-11 10:51] LABS: Absolute Neutrophil Ct (ANC) 9.46 (1.4-6.9); BASOPHIL % 0.3 % (0.0-0.4); Basophil (Absolute #) 0.04 (0-0.4); Eosinophil % 5.1 % (0.00-5.0); Hematocrit 34.1 % (35-47); Hemoglobin 10.7 gm/dl (12.0-16.0); Lymphocyte (Absolute #) 1.28 (1.0-4.6); Lymphocytes % 10.8 % (24.0-44.0); Mean Cell Volume 95.8 fl (78-100); Mean Corpuscular Hemoglobin 30.1 pg (26-32); Mean Corpuscular Hgb Concent. 31.4 g/dl (32-36); Monocyte (Absolute #) 0.47 (0.0-1.3); Neutrophil % 79.8 % (36.0-66.0); Platelet Count 270 K/mm3 (150-450); Red Blood Count 3.56 M/mm3 (4.1-5.4); Red Cell Distribution Width 17.2 % (11.5-14.0); White Blood Count 11.9 K/mm3 (4.0-10.5)
--- NOTE | 2020-11-11 11:04 | XRAY ---
Indication: Pain and vomiting 2 weeks. Multiple contiguous images obtained through the abdomen and pelvis without contrast. Comparison: August 25, 2018. Patient body habitus again limits the exam. Lung bases and upper abdomen also degraded by respiration artifact with grossly stable subsegmental atelectasis/scarring and tiny right base calcified granuloma. No consolidations/effusion. Heart is not enlarged again with prominent epicardiac fat. Noncontrasted stomach and bowel loops are nonobstructed. Normal air-filled appendix. Stable scattered descending/sigmoid diverticulosis, cholecystectomy, fatty liver, 13 cm splenomegaly, small left adrenal adenoma, and tiny bilateral renal cysts. No free fluid/air. Urinary bladder is minimally distended with moderate circumferential wall thickening either incomplete distention versus cystitis. Remaining liver, pancreas, spleen, adrenal glands, kidneys, ureters, urinary bladder, and uterus unremarkable for noncontrast exam. There remains diffuse scattered vascular calcifications without AAA. Osseous structures again demonstrates mild/moderate degenerative spondylosis throughout the thoracolumbar spine. Impression: 1. Again limited exam due to patient body habitus and respiration artifact. 2. Urinary bladder wall circumferential wall thickening either incomplete distention versus cystitis. 3. Grossly stable colonic diverticulosis, fatty liver, splenomegaly, small left adrenal adenoma, tiny bilateral renal cysts, and chronic bony findings.
[2020-11-11] MEDS: Sodium Chloride 0.9% 1000 ML 1,000 ML IV SCH (11:10)
--- NOTE | 2020-11-11 11:35 | ERPHSYRPT ---
- History of Present Illness Time Seen by Provider: 11/11/20 10:40 Source: patient Exam Limitations: no limitations Patient Subjective Stated Complaint: STATES SHE HAS BEEN VOMITING FOR A WEEK. NH STATES LAST WEEK HAD BLACK EMESIS X 1. GREEN EMESIS THIS AM. Triage Nursing Assessment: ALERT AND ORIENTED. MODERATELY HOPI. BOWEL SOUNDS ACTIVE. Physician History: Patient is a 74-year-old female presents to our ED from [facility] for evaluation of nausea vomiting for 1 week. Staff reports that patient had a bout of black emesis last week. However none was observed this week. Patient presented to our ED via EMS. Patient was mildly tachycardic. Patient states she feels weak. She has no pain. Symptoms are mild to moderate in intensity. No specific worsening improving factors. Patient voices no other complaints or concerns at this time. Timing/Duration: week(s) (1 week) Severity: moderate Modifying Factors: Improves With: nothing Associated Symptoms: No shortness of breath, No loss of appetite Allergies/Adverse Reactions: guaifenesin [From Mucinex] Allergy (Mild, Verified 03/21/17 16:19) unsure levofloxacin [From Levaquin] Allergy (Mild, Verified 03/21/17 16:19) unsure nabumetone [From Relafen] Allergy (Mild, Verified 03/21/17 16:19) UNSURE Home Medications: Acetaminophen 325 mg [Tylenol 325 mg] 650 mg PO Q4H PRN PRN 08/25/18 [History] Albuterol Sulfate [Ventolin Hfa] 2 puff IH Q4HPRN PRN 08/25/18 [History] Allopurinol 300 mg [Zyloprim 300 mg] 600 mg PO DAILY 08/25/18 [History] Aspirin EC 81 mg [Ecotrin 81 mg] 81 mg PO DAILY 08/25/18 [History] B Complex W-C No.20/Folic Acid [Arjun Caps Softgel] 1 cap PO DAILY 08/25/18 [History] Bumetanide [Bumex] 2 mg PO BID 08/25/18 [History] Cetirizine HCl [Zyrtec] 10 mg PO DAILY 08/25/18 [History] Cyanocobalamin (Vitamin B-12) [Vitamin B-12] 1,000 mcg PO DAILY 08/25/18 [History] Ergocalciferol (Vitamin D2) [Vitamin D2] 50,000 unit PO Q7D 08/25/18 [History] Ferrous Sulfate [Feosol] 325 mg PO BID 08/25/18 [History] Fluticasone Propionate [Flonase NASAL] 2 spray NS DAILY 08/25/18 [History] Hydrocodone/APAP 5-325 Tab^^^ [Weldon 5-325 Tablet^^^] 1 tab PO Q6HPRN PRN MDD 6 08/25/18 [History] Hydrocortisone 2.5% 30 gm [Anusol-Hc 2.5% Cream 30 gm] 30 gm TP BIDPRN PRN 08/25/18 [History] Hydroxyzine HCl 25 mg [Atarax 25 mg] 12.5 mg PO HS 08/25/18 [History] Hydroxyzine HCl 25 mg [Atarax 25 mg] 12.5 mg PO Q8HPRN PRN 08/25/18 [History] Insulin Aspart [NovoLOG Insulin] 0 unit SQ UD 08/25/18 [History] Insulin Detemir [Levemir] 20 unit SQ QAM 08/25/18 [History] Lanolin Alcohol/Mo/W.pet/[place] [Eucerin Creme] 57 gm TP UD PRN 08/25/18 [Hist ory] Magnesium Hydroxide 30 ml [Milk of Magnesia 30 ml] 30 ml PO DAILY PRN PRN 08/25/18 [History] Nystatin Powder 15 gm [Nystop Powder 15 gm] 10 gm TP TID 08/25/18 [History] Ondansetron ODT 4 MG [Zofran Odt 4 mg] 4 mg PO Q6H PRN PRN 08/25/18 [History] Polyethylene Glycol 3350 17 gm [Miralax Powder 17GM PACKET] 17 gm PO DAILY 08/25/18 [History] Potassium Chloride 10 Meq Tab* [Klor Con 10 MEQ] 20 meq PO 08,12 08/25/18 [History] Potassium Chloride 10 Meq Tab* [Klor Con 10 MEQ] 40 meq PO 1600 08/25/18 [History] Sertraline HCl 50 mg [Zoloft 50 mg Tablet] 75 mg PO DAILY 08/25/18 [History] Sodium Bicarbonate 650 mg PO DAILY 08/25/18 [History] Spironolactone 25 mg [Aldactone 25 MG] 25 mg PO DAILY 08/25/18 [History] Tramadol HCl 50 mg [Ultram 50 mg] 50 mg PO TIDPRN PRN 08/25/18 [History] metOLazone [Metolazone] 5 mg PO DAILY 08/25/18 [History] Hx Tetanus, Diphtheria Vaccination/Date Given: No Hx Influenza Vaccination/Date Given: Yes Hx Pneumococcal Vaccination/Date Given: Yes Travel Risk - International Travel Have you traveled outside of the country in past 3 weeks: No - Coronavirus Screening Are you exhibiting any of the following symptoms?: Yes Symptoms: Vomiting/Diarrhea Close contact with a COVID-19 positive Pt in past 14-21 Days: No - Vaccine Status Have you recieved a Covid-19 vaccination: Yes Container Washer: Moderna - Vaccination Dates Date of 2cond Vaccination (if applicable): 04/2020 - Review of Systems Constitutional: No Symptoms, No Fever, No Chills Eyes: No Symptoms Ears, Nose, & Throat: No Symptoms Respiratory: No Symptoms, No Cough, No Dyspnea Cardiac: No Symptoms, No Chest Pain, No Edema, No Syncope Abdominal/Gastrointestinal: No Symptoms, No Abdominal Pain, No Nausea, No Vomiting, No Diarrhea Genitourinary Symptoms: No Symptoms, No Dysuria Musculoskeletal: No Symptoms, No Back Pain, No Neck Pain Skin: No Symptoms, No Rash Neurological: No Symptoms, No Dizziness, No Focal Weakness, No Sensory Changes Psychological: No Symptoms Endocrine: No Symptoms Hematologic/Lymphatic: No Symptoms Immunological/Allergic: No Symptoms All Other Systems: Reviewed and Negative - Past Medical History Pertinent Past Medical History: Yes Neurological History: No Pertinent History ENT History: No Pertinent History Cardiac History: Congestive Heart Failure, Hypertension Respiratory History: CHF, COPD, Other Endocrine Medical History: Adrenal Insufficiency, Diabetes Type II Musculoskeletal History: Osteoarthritis GI Medical History: No Pertinent History History: Renal Disease Psycho-Social History: Depression Female Reproductive Disorders: No Pertinent History Other Medical History: anemia - Past Surgical History Past Surgical History: Yes Neuro Surgical History: No Pertinent History Cardiac: No Pertinent History Respiratory: No Pertinent History Gastrointestinal: Cholecystectomy Genitourinary: No Pertinent History Musculoskeletal: Orthopedic Surgery Female Surgical History: No Pertinent History Other Surgical History: R knee replacement - Social History Smoking Status: Former smoker Exposure to second hand smoke: Yes Drug Use: none Patient Lives Alone: No - Nursing Vital Signs Nursing Vital Signs: Initial Vital Signs Temperature 98 F 11/11/20 10:29 Pulse Rate 110 H 11/11/20 10:29 Respiratory Rate 20 11/11/20 10:29 Blood Pressure 125/44 11/11/20 10:29 O2 Sat by Pulse Oximetry 95 11/11/20 10:29 Pain Scale Pain Intensity 3 - Physical Exam General Appearance: no apparent distress, alert Eye Exam: PERRL/EOMI, eyes nml inspection Ears, Nose, Throat Exam: normal ENT inspection, TMs normal, pharynx normal, moist mucous membranes Neck Exam: normal inspection, non-tender, supple, full range of motion Respiratory Exam: normal breath sounds, lungs clear, No respiratory distress Cardiovascular Exam: regular rate/rhythm, normal heart sounds, normal peripheral pulses Gastrointestinal/Abdomen Exam: soft, normal bowel sounds, No tenderness, No mass Back Exam: normal inspection, normal range of motion, No CVA tenderness, No vertebral tenderness Extremity Exam: normal inspection, normal range of motion, pelvis stable Neurologic Exam: alert, oriented x 3, cooperative, normal mood/affect, sensation nml, No motor deficits Skin Exam: normal color, warm, dry, No rash Lymphatic Exam: No adenopathy SpO2 Interpretation: normal SpO2: 94 O2 Delivery: Room Air - Course Nursing assessment & vital signs reviewed: Yes EKG Interpreted by Me: RATE (108), Sinus Tach, NORMAL AXIS, NORMAL INTERVALS - CT Exams Abdomen/Pelvis CT Interpretation: Tele-radiologist Report (Limited exam due to body habitus. Urinary bladder wall circumferential wall thickening either incomplete distention versus cystitis. Grossly stable colonic diverticulosis, fatty liver, splenomegaly, small left adrenal adenoma and tiny bilateral renal cyst and chronic bony findings.) Ordered Tests: Active Orders 24 hr Category Date Time Status Major Gifts Manager STAT Care 11/11/20 10:32 Active EKG-ER Only STAT Care 11/11/20 10:30 Active Arias [Catheter-Edison Arias] STAT Care 11/11/20 12:31 Active IV Insertion STAT Care 11/11/20 10:30 Active IV Insertion-2nd Peripheral STAT Care 11/11/20 12:01 Active Oxygen-ED Only Nasal Cannula 2 lpm Care 11/11/20 12:31 Active Pulse Oximetry (ED) STAT Care 11/11/20 10:30 Active ABDOMEN AND PELVIS W/0 CONTRAS [CT] Stat Exams 11/11/20 10:32 Completed BLOOD CULTURE Stat Lab 11/11/20 12:37 Received CBC W DIFF Stat Lab 11/11/20 10:35 Completed CMP Stat Lab 11/11/20 10:35 Completed CULTURE,URINE Stat Lab 11/11/20 12:30 Ordered Lactic Acid Stat Lab 11/11/20 12:22 Completed MAGNESIUM Stat Lab 11/11/20 10:35 Completed TROPONIN Q3H Lab 11/11/20 10:35 Completed TROPONIN Q3H Lab 11/11/20 13:45 Ordered TROPONIN Q3H Lab 11/11/20 16:45 Ordered TROPONIN Q3H Lab 11/11/20 19:45 Ordered TROPONIN Q3H Lab 11/11/20 22:45 Ordered UA W/RFX UR CULTURE Stat Lab 11/11/20 12:30 Ordered Medication Summary Generic Name Dose Route Start Last Admin Trade Name Freq PRN Reason Stop Dose Admin Sodium Chloride 1,000 mls @ 100 mls/hr 11/11/20 10:30 11/11/20 11:10 Sodium Chloride 0.9% 1000 Ml IV 12/11/20 10:29 100 mls/hr .Q10H SAMEERA Administration Sodium Bicarbonate 75 meq/ 1,075 mls @ 100 mls/hr 11/11/20 12:00 11/11/20 12:14 Dextrose/Sodium Chloride IV 12/11/20 11:59 100 mls/hr .[id number] SAMEERA 100 mls/hr Administration Ceftriaxone Sodium/Dextrose 1 g in 50 mls @ 100 mls/hr 11/11/20 12:33 11/11/20 12:41 Rocephin 1 Gm-D5w 50 Ml Bag IV 11/11/20 13:02 100 mls/hr STAT STA 100 mls/hr Administration Discontinued Medications Generic Name Dose Route Start Last Admin Trade Name Freq PRN Reason Stop Dose Admin Calcium Gluconate 1,000 mg 11/11/20 11:41 11/11/20 11:57 Calcium Gluconate 10% 1000 Mg IV 11/11/20 11:42 1,000 mg STAT ONE Administration Calcium Gluconate Confirm 11/11/20 11:56 Calcium Gluconate 10% 1000 Mg Administered 11/11/20 11:57 Dose 1,000 mg IV .STK-MED ONE Dextrose 50 ml 11/11/20 11:59 11/11/20 12:08 D50w 50 Ml Abboject IV 11/11/20 12:00 50 ml STAT ONE Administration Dextrose 50 ml 11/11/20 11:59 11/11/20 12:09 D50w 50 Ml Abboject IV 11/11/20 12:00 50 ml STAT ONE Administration Dextrose Confirm 11/11/20 12:07 D50w 50 Ml Abboject Administered 11/11/20 12:08 Dose 100 ml IV .STK-MED ONE Ceftriaxone Sodium/Dextrose Confirm 11/11/20 12:38 Rocephin 1 Gm-D5w 50 Ml Bag Administered 11/11/20 12:39 Dose 1 g in 50 mls @ ud IV .STK-MED ONE Insulin Human Regular 8 unit 11/11/20 12:00 11/11/20 12:08 Humulin R SQ 11/11/20 12:01 8 unit STAT ONE Administration Insulin Human Regular Confirm 11/11/20 12:07 Humulin R Administered 11/11/20 12:08 Dose 8 unit .ROUTE .STK-MED ONE Lorazepam 0.5 mg 11/11/20 12:05 11/11/20 12:07 Ativan 2 Mg/1 Ml Vial IV 11/11/20 12:06 0.5 mg ONCE STA Administration Lorazepam Confirm 11/11/20 12:05 Ativan 2 Mg/1 Ml Vial Administered 11/11/20 12:06 Dose 2 mg .ROUTE .STK-MED ONE Patiromer 8.4 gm 11/11/20 12:02 11/11/20 12:31 Veltassa PO 11/11/20 12:03 8.4 gm STAT STA Administration Patiromer Confirm 11/11/20 12:26 Veltassa Administered 11/11/20 12:27 Dose 8.4 gm PO .STK-MED ONE Lab/Rad Data: Laboratory Result Diagrams 11/11/20 10:35 11/11/20 10:35 Laboratory Results 11/11/20 11/11/20 11/11/20 Range/Units 12:22 10:35 10:35 WBC (4.0-10.5) K/mm3 RBC (4.1-5.4) M/mm3 Hgb (12.0-16.0) gm/dl Hct (35-47) % MCV (78-100) fl MCH (26-32) pg MCHC (32-36) g/dl RDW (11.5-14.0) % Plt Count (150-450) K/mm3 MPV (7.5-11.0) fl Gran % (36.0-66.0) % Eos # (Auto) (0-0.5) Absolute Lymphs (auto) (1.0-4.6) Absolute Monos (auto) (0.0-1.3) Lymphocytes % (24.0-44.0) % Monocytes % (0.0-12.0) % Eosinophils % (0.00-5.0) % Basophils % (0.0-0.4) % Absolute Granulocytes (1.4-6.9) Basophils # (0-0.4) Sodium 138 (137-145) mmol/L Potassium 7.1 H* (3.5-5.1) mmol/L Chloride 105 (98-107) mmol/L Carbon Dioxide 10 L* (22-30) mmol/L Anion Gap 30.1 H (5-15) MEQ/L BUN 116 H (7-17) mg/dL Creatinine 11.27 H (0.52-1.04) mg/dL Estimated GFR 3.5 ML/MIN Glucose 91 (74-106) mg/dL Lactic Acid 1.0 (0.4-2.0) Calcium 9.3 (8.4-10.2) mg/dL Magnesium 2.0 (1.6-2.3) mg/dL Total Bilirubin 0.10 L (0.2-1.3) mg/dL AST 17 (14-36) U/L ALT 11 (0-35) U/L Alkaline Phosphatase 61 (38-126) U/L Troponin I < 0.012 (0.000-0.034) ng/mL Serum Total Protein 7.7 (6.3-8.2) g/dL Albumin 4.3 (3.5-5.0) g/dL 11/11/20 Range/Units 10:35 WBC 11.9 H (4.0-10.5) K/mm3 RBC 3.56 L (4.1-5.4) M/mm3 Hgb 10.7 L (12.0-16.0) gm/dl Hct 34.1 L (35-47) % MCV 95.8 (78-100) fl MCH 30.1 (26-32) pg MCHC 31.4 L (32-36) g/dl RDW 17.2 H (11.5-14.0) % Plt Count 270 (150-450) K/mm3 MPV 10.0 (7.5-11.0) fl Gran % 79.8 H (36.0-66.0) % Eos # (Auto) 0.60 H (0-0.5) Absolute Lymphs (auto) 1.28 (1.0-4.6) Absolute Monos (auto) 0.47 (0.0-1.3) Lymphocytes % 10.8 L (24.0-44.0) % Monocytes % 4.0 (0.0-12.0) % Eosinophils % 5.1 H (0.00-5.0) % Basophils % 0.3 (0.0-0.4) % Absolute Granulocytes 9.46 H (1.4-6.9) Basophils # 0.04 (0-0.4) Sodium (137-145) mmol/L Potassium (3.5-5.1) mmol/L Chloride (98-107) mmol/L Carbon Dioxide (22-30) mmol/L Anion Gap (5-15) MEQ/L BUN (7-17) mg/dL Creatinine (0.52-1.04) mg/dL Estimated GFR ML/MIN Glucose (74-106) mg/dL Lactic Acid (0.4-2.0) Calcium (8.4-10.2) mg/dL Magnesium (1.6-2.3) mg/dL Total Bilirubin (0.2-1.3) mg/dL AST (14-36) U/L ALT (0-35) U/L Alkaline Phosphatase (38-126) U/L Troponin I (0.000-0.034) ng/mL Serum Total Protein (6.3-8.2) g/dL Albumin (3.5-5.0) g/dL - Progress Progress: improved Progress Note: Patient reassessed. She is stable. Work-up reveals acute on chronic renal injury. Creatinine is 11. Previous creatinine was 2. CT abdomen pelvis negative for acute intra-abdominal pathology. There is some thickening of the urinary bladder wall. A Arias catheter was inserted. Purulent urine was obtained. Antibiotics initiated. Patient received 1 g Rocephin. Potassium 7.1. We initiated therapy for hyperkalemia. Patient is very acidotic. Anion gap is 30. Bicarb is 10. Case discussed with Dr. Thao ER physician at [facility] accepts transfer. Plan of care discussed with patient. She agrees to transfer to [facility] for further evaluation and treatment. 11/11/20 12:44 Counseled pt/family regarding: lab results, diagnosis, rad results - Departure Departure Disposition: Transfer Clinical Impression: Fatty liver, Lung granuloma, Nausea vomiting and diarrhea, Splenomegaly, Adrenal adenoma, Renal cyst, Arthritis of spine, Acute renal injury, Hyperkalemia, Metabolic acidosis, High anion gap metabolic acidosis, UTI (urinary tract infection) Condition: Stable Critical Care Time: No Referrals: MARILUZ STEVENS [Primary Care Provider] -
[2020-11-11 11:37] LABS: ALBUMIN 4.3 g/dL (3.5-5.0); BILIRUBIN,TOTAL 0.1 mg/dL (0.2-1.3); Calcium 9.3 mg/dL (8.4-10.2); Creatinine 1 11.27 mg/dL (0.52-1.04); EST GLOMERULAR FILTRATION RATE 3.5 ML/MIN; Total Protein 7.7 g/dL (6.3-8.2)
[2020-11-11 11:39] LABS: Potassium 7.1 mmol/L (3.5-5.1)
[2020-11-11 11:40] LABS: ANION GAP 30.1 MEQ/L (5-15)
[2020-11-11] MEDS ORDERED: Calcium Gluconate 10% 1000 MG IV ONE (11:56)
[2020-11-11] MEDS: Calcium Gluconate 10% 1000 MG IV ONE (11:57)
[2020-11-11] MEDS ORDERED: Ativan 2 MG/1 ML VIAL ONE (12:05)
[2020-11-11] MEDS ORDERED: HUMULIN R ONE (12:07)
[2020-11-11] MEDS ORDERED: D50W 50 ml Abboject IV ONE (12:07)
[2020-11-11] MEDS: Ativan 2 MG/1 ML VIAL IV STA (12:07)
[2020-11-11] MEDS: D50W 50 ml Abboject IV ONE ×2 (12:08→12:09)
[2020-11-11] MEDS: HUMULIN R SQ ONE (12:08)
[2020-11-11] MEDS: Sodium Bicarbonate 50 MEQ/50 ML VIAL*** 75 MEQ in Dextrose 5% -0.45 NaCl 1000 ML 1,000 ML IV SCH (12:14)
[2020-11-11] MEDS ORDERED: VELTASSA PO ONE (12:26)
[2020-11-11] MEDS: VELTASSA PO STA (12:31)
[2020-11-11 12:38] VITALS: O2SAT 94
[2020-11-11] MEDS ORDERED: ROCEPHIN 1 Gm-D5w 50 ml Bag** 1 G/50 ML IVPB IV ONE (12:38)
[2020-11-11] MEDS: ROCEPHIN 1 Gm-D5w 50 ml Bag** 1 G/50 ML IVPB IV STA (12:41)
[2020-11-11 13:09] VITALS: BP 102/41; PULSE 108
[2020-11-11 13:13] LABS: Appearance TURBID (CLEAR); Bacteria MODERATE /HPF (NEGATIVE); Bilirubin NEGATIVE (NEGATIVE); Blood MODERATE Ery/ul (0-5); Glucose NEGATIVE (NEGATIVE); Ketones NEGATIVE (NEGATIVE); Leukocyte Esterase MODERATE (NEGATIVE); Nitrite NEGATIVE (NEGATIVE); Protein,Urine Dip 100 (Negative); RBC 26-50 /HPF (0-2); Urobilinogen NEGATIVE mg/dL (0-1); WBC >100 /HPF (0-5)
== END 2020-11-11 13:20 | disposition short-term general hospital (02) ==
LOC: ED 10:28
DX: K76.0 Fatty (change of) liver, not elsewhere classified (principal); R11.2 Nausea with vomiting, unspecified; Z79.899 Other long term (current) drug therapy; N39.0 Urinary tract infection, site not specified; E87.5 Hyperkalemia; N17.9 Acute kidney failure, unspecified; E87.2 Acidosis; R19.7 Diarrhea, unspecified; I10 Essential (primary) hypertension; E11.9 Type 2 diabetes mellitus without complications; J44.9 Chronic obstructive pulmonary disease, unspecified; R16.1 Splenomegaly, not elsewhere classified; D35.00 Benign neoplasm of unspecified adrenal gland; N28.1 Cyst of kidney, acquired; M47.9 Spondylosis, unspecified
CPT/HCPCS: 36000; 36415; 51702; 74176; 80053; 81001; 83605; 83735; 84132; 84484; 85025; 87040; 87077; 87086; 87186; 93005; 93041; 94760; 96372; 96374; 96375; 96376; 99285; J0610; J0696; J1815; J2060